=== PATIENT | female | born 1950 | race Caucasian/White ===

== ENCOUNTER 2019-01-06 20:21 | Emergency (ER) | payer OTHER, SELFPAY ==
[2019-01-06] VITALS (7 sets, daily range): BP systolic 136–141; BP diastolic 76–91; PULSE 89–117; RESP 16; TEMP 36.8–36.9; O2SAT 96–98; BMI 32.9
--- NOTE | 2019-01-06 20:58 | CT_ITS ---
STUDY: CT ABDOMEN AND PELVIS WITH CONTRAST REASON FOR EXAM: Female, 68 years old. Lower abdominal pain. RADIATION DOSAGE (If Supplied By Facility): CTDIvol = ( 16.05 ) mGy, DLP = ( 1113.95 ) mGycm TECHNIQUE: Transaxial images were obtained from the dome of the diaphragm to the symphysis pubis without oral contrast. 100ML IV Isovue 300 was administered. Sagittal and coronal images were reconstructed. Individualized dose optimization techniques were used for this CT. COMPARISON: None. FINDINGS: Lung bases are clear. Visualized heart is normal. Small hiatal hernia. 4.3 x 3.2 cm low-attenuation lesion in the posterior segment of the liver demonstrates peripheral puddling consistent with hemangioma. A 1.7 cm posterior segment hemangioma is noted medial to the first. There is a 2.7 x 2.2 x 2.7 cm low-attenuation lesion in the lateral segment of the liver. CT density measures 38 Hounsfield units. This is not consistent with a simple cyst, and is not adequately characterized on the current study. The gallbladder is unremarkable. The spleen and pancreas are unremarkable. The adrenal glands are normal. The kidneys are unremarkable. No stones or hydronephrosis. The aorta is normal in caliber. There is no free fluid, free air, or organized collection. Thick-walled sigmoid colon with diverticulosis and pericolonic stranding, consistent with acute diverticulitis. No free fluid, free air, or organized collection. No bowel obstruction. Moderate stool burden. Normal appendix. Urinary bladder is unremarkable. Multiple calcified uterine fibroids. Normal abdominal wall. Mild degenerative changes of the lumbar spine. CT/Abdomen/Pelvis W IV Cont ONLY IMPRESSION: 1. Acute uncomplicated diverticulitis. 2. Hepatic hemangiomas. 3. Lateral segment hepatic lesion is not characterized on the current study. If there is a history of primary malignancy or abnormal LFTs, further evaluation is warranted. 4. Small hiatal hernia. 5. Uterine fibroids. Electronically Signed: She Baez MD at 22:29 EDT Tel , Service support ,
[2019-01-06] MEDS: Morphine 4 MG/ML Syringe IV (21:18)
[2019-01-06] MEDS: 0.9% Normal Saline 1,000 ML 1000 ML IV (21:20)
--- NOTE | 2019-01-06 21:29 | ED.VIS.GEN ---
History of Present Illness Chief Complaint: Abd Pain Informant: Patient Onset: Days - 5 Context: Gradual Onset Timing: Waxes and wanes Current Severity: Moderate Maximum Severity: Severe Narrative: 68-year-old female with history of diverticulitis and hypertension presenting with lower abdominal pain. Patient states her symptoms started about 5 days ago. She describes it as cramping in nature. It is in her lower abdomen more so on the left side. The pain does not radiate. Patient states that this feels like her prior episode of diverticulitis back in 2013. Patient denies any associated nausea or vomiting. She states she has had normal bowel movements. She denies any fever. She denies any chest pain, shortness breath or difficulty breathing. She denies any urinary symptoms. She took [id number] medication for pain at home which did not help. Past Medical History - Allergies and Home Meds Allergies/Adverse Reactions: Allergies Sulfa (Sulfonamide Antibiotics) Adverse Reaction (Verified 01/06/19 20:24) Nausea Primary Care Physician: Gregory Allen MD [Primary Care Provider] - Past Medical History: - - Diverticulitis, hypertension Surgical History: appendectomy, - - Oophorectomy Smoking Status: Former smoker Review of Systems All systems negative except as indicated General: Reports: Malaise. Denies: Fever Gastrointestinal: Reports: Abdominal pain. Denies: Nausea, Vomiting, Diarrhea Physical Exam Vital Signs/Narrative: Vital Signs Temp Pulse Resp BP Pulse Ox 01/06/19 20:30 98.5 F 01/06/19 20:22 98.5 F 117 H 16 141/91 H 96 Inital Vital Signs reviewed: Yes General: Well nourished, Well developed, - - Comfortable secondary to pain Head: Normocephalic, Atraumatic Eyes: Perrl, EOMI ENT: Moist mucous membranes, No rhinorrhea Neck: Supple, Nontender Cardiovascular: Regular rate, Regular rhythm, No murmurs Respiratory: No distress, CTA bilaterally, Chest nontender Abdomen: Soft, Nondistended, Normal bowel sounds, Tender. Negative for: Guarding - Lower abdomen, left lower quadrant, Rebound tenderness Back: Nontender, Normal Inspection. Negative for: CVA tenderness Extremities: Nontender, No edema Skin: Normal color, No rash Neurological: Alert, Oriented x3, Cranial nerves II-XII grossly intact, Normal Strength, Normal Sensation Psychological: Normal affect, Normal Mood Diagnostic/Tx/Re-eval Laboratory Results - last 24 hr 01/06/19 01/06/19 01/06/19 21:24 21:24 22:05 WBC 9.0 RBC 4.45 Hgb 13.2 Hct 39.5 MCV 88.8 MCH 29.7 MCHC 33.4 RDW Std Deviation 40.1 RDW Coeff of Rosa 12.4 Plt Count 220 MPV 10.4 Immature Gran % (Auto) 0.300 Neut % (Auto) 74.5 H Lymph % (Auto) 14.3 L [place] % (Auto) 9.0 Eos % (Auto) 1.7 Baso % (Auto) 0.2 Absolute Neuts (auto) 6.7 Absolute Lymphs (auto) 1.29 Nucleated RBC % 0 Sodium 139 Potassium 3.3 L Chloride 103 Carbon Dioxide 34.0 H Anion Gap 2 L BUN 17 Creatinine 1.05 H Estim Creat Clear Calc 49.34 Est GFR (MDRD) Af Amer 67 Est GFR (MDRD) Non-Af 56 L BUN/Creatinine Ratio 16.2 Glucose 77 Calcium 9.2 Total Bilirubin 0.40 AST 17 ALT 34 Alkaline Phosphatase 98 Total Protein 7.4 Albumin 3.6 Globulin 3.8 Albumin/Globulin Ratio 0.9 Urine Color Yellow Urine Clarity Sl. Cloudy Urine pH 6.5 Ur Specific [place] 1.015 Urine Protein 15 H Urine Glucose (UA) 100 H Urine Ketones Negative Urine Occult Blood Negative Urine Nitrite Negative Urine Bilirubin Negative Urine Urobilinogen Normal Ur Leukocyte Esterase 100 H Urine RBC 0 SEEN Urine WBC 5-10 SEEN Ur Squamous Epith Cells 0-5 SEEN Urine Bacteria 0 SEEN Urine Mucus 0 SEEN Diagnostic Data Abdomen/Pelvis CT 01/06/19 20:58 IMPRESSION: 1. Acute uncomplicated diverticulitis. 2. Hepatic hemangiomas. 3. Lateral segment hepatic lesion is not characterized on the current study. If there is a history of primary malignancy or abnormal LFTs, further evaluation is warranted. 4. Small hiatal hernia. 5. Uterine fibroids. Electronically Signed: She Baez MD at 22:29 EDT Tel , Service support , - Medical Decision Making Is evaluated for 5 days of worsening lower abdominal pain. Physical exam and history is consistent with diverticulitis. Patient is well-appearing. She is tachycardic but other vital signs are normal. Patient is given IV fluids as well as pain medication. Lab work is relatively unremarkable. She does not have any significant leukocytosis. CT the abdomen does show uncomplicated diverticulitis. Patient elects to be treated outpatient. She will be discharged home with a course of antibiotics, pain medication and nausea medication. She is encouraged to follow-up with her primary care physician. Patient is counseled on the risk of outpatient failure and need to return the emergency room. She verbalizes agreement with this. Patient discharged home in improved and stable condition. ED Disposition - Plan for ED Patient: Disposition: Home or Assisted Living Diagnosis: Diverticulitis Instructions: Diverticulitis Prescriptions: Amoxicillin/Potassium Clav [Augmentin 875-125 Tablet] 1 ea PO BID #14 tab Prescription Printed Hydrocodone Bitart/Apap 5-325 [[place] 5MG-325MG] 1 tablet PO TID PRN PRN 3 Days #10 tablet PRN Reason: Pain Ondansetron [Zofran Odt] 4 mg PO Q8H PRN PRN #10 tab PRN Reason: Nausea Prescription Printed Referrals: Gregory Allen MD [Primary Care Provider] - Additional Instructions: Drink plenty of fluids. Return to emergency room if you have worsening symptoms. You can also take ibuprofen as needed for your pain.
[2019-01-06 21:30] LABS: Absolute Lymphocyte Count 1.29 X10^3/uL (0.83-4.51); Absolute Neutrophil Count 6.7 X10^3/uL (2.0-7.7); Basophil# 0.02 X10^3/uL; Basophil% 0.2 % (0-1); Eosinophil# 0.15 X10^3/uL; Eosinophils% 1.7 % (0-5); Hematocrit 39.5 % (37-47); Hemoglobin 13.2 g/dL (12.0-15.0); Lymphocyte # 1.29 X10^3/ul (4.0); Lymphocyte % 14.3 % (19-41); Mean Corp Hgb Conc 33.4 g/dL (32-36); Mean Corpuscular Hgb 29.7 pg (27.0-32.0); Mean Corpuscular Volume 88.8 fL (81-99); Mean Platelet Vol. 10.4 fl (6.2-12.0); Monocyte# 0.81 X10^3/uL; NRBC Flagged by Analyzer 0 % (0-5); Neutrophil # 6.69 X10^3/uL (2.7-7.7); Neutrophil % 74.5 % (47-70); Platelet Count 220 K/mm3 (150-450); RBC Distribution Width CV 12.4 % (11.6-14.6); RBC Distribution Width SD 40.1 fl (35.1-43.9); Red Blood Count 4.45 M/mm3 (4.2-5.4)
[2019-01-06 21:48] LABS: ALB/GLOB Ratio 0.9 RATIO (0.9-2.4); AST(SGOT) 17 U/L (15-37); Alanine Aminotransfer ALT/SGPT 34 U/L (13-56); Albumin, Serum 3.6 g/dL (3.2-5.0); Alkaline Phosphatase 98 U/L (45-117); Anion Gap 2 (5-15); BUN 17 mg/dL (7-18); BUN/Creat Ratio 16.2 RATIO (10-20); Calcium,Total 9.2 mg/dL (8.5-10.1); Chloride 103 mmol/L (98-107); Creatinine, Serum 1.05 mg/dL (0.55-1.02); EST Glomerular Filtration Rate 56 mL/min (>60); Est Glom Filt Rate - Afr Amer 67 mL/min (>60); Estimated Creatinine Clearance 49.34 ml/min; Globulin 3.8 g/dL (2.2-4.2); Glucose 77 mg/dL (74-106); Potassium 3.3 mmol/L (3.5-5.1); Protein, Total 7.4 g/dL (6.4-8.2); Sodium Level 139 mmol/L (136-145)
[2019-01-06 22:13] LABS: Bacteria 0 SEEN /hpf (None Seen); Mucous, Urine 0 SEEN /hpf (<or=2+); Red Blood Cells-Urine 0 SEEN /hpf (0-5)
[2019-01-06 22:17] LABS: Color, Urine Yellow (Yellow); Glucose, Dipstick 100 mg/dl (Normal); Ketone-Dipstick Negative (Negative); Leukocyte Esterase-Dipstick 100 /ul (Negative); Nitrite-Dipstick Negative (Negative); Occult Blood-Urine Negative /ul (Negative); Protein-Dipstick 15 mg/dl (Negative); Specific Gravity, Urine 1.015 (1.002-1.030); Urine Bilirubin Dipstick Negative (Negative); Urine Clarity Sl. Cloudy (Clear); Urine Urobilinogen Normal (Normal); Urine pH 6.5 (5.0 - 8.0)
[2019-01-06 22:23] LABS: Squamous Epithelial Cells - UA 0-5 SEEN /hpf (5-10); White Blood Cells 5-10 SEEN /hpf (0-5)
[2019-01-06] MEDS: Amox/Clavulanate 875 MG Tablet PO (22:50)
== END 2019-01-06 23:22 | disposition home or self-care (01) ==
PROVIDERS: Emergency Provider Emergency Medicine; Family Provider Family Medicine; PCP Family Medicine
DX: K57.92 Diverticulitis of intestine, part unspecified, without perforation or abscess without bleeding (principal); I10 Essential (primary) hypertension; Z87.891 Personal history of nicotine dependence
CPT/HCPCS: 74177; 80053; 81001; 85025; 96361; 96374; 99283; J7030; Q9967; A4216

== ENCOUNTER → 2019-05-18 14:34 | Outpatient (CLI) | payer OTHER, SELFPAY ==
[2019-05-04 13:41] VITALS: BMI 32.9
--- NOTE | 2019-05-18 14:36 | BI_ITS ---
MAMMOGRAPHY - UNILATERAL DIAGNOSTIC: RIGHT BREAST REASON FOR EXAM: Female, 68 years old. Right breast nodules. PERTINENT HISTORY: Personal history of breast cancer. TECHNIQUE: 90 degree lateral and craniocaudad views of the right breast were obtained. CAD: Full Field Digital Mammography with Computer Added Detection was performed. COMPARISON: Comparison is made with prior oxygen examination dated February 13, 2019. FINDINGS: Breast Composition: There are scattered areas of fibroglandular density. There is a 6.7 mm well-defined nodule in the mid central slightly lateral aspect of the breast. There is also evidence of a 4.8 mm nodule in the lateral aspect of the breast not well seen on the 90 degree lateral. Correlation with ultrasound is recommended. No other significant abnormalities are identified. BI/DIAG MAMM W/CAD, UNILAT IMPRESSION: 2 nodular densities seen in the right breast as described. Correlation with ultrasound is recommended. ASSESSMENT CATEGORY: BIRADS Category 0: Incomplete. Need additional imaging evaluation. A letter regarding these results will be sent to the patient by the facility within 30 days. Approximately 10% of breast cancers are not detected by mammography. A normal mammogram should not delay biopsy of a clinically suspicious abnormality. Electronically Signed: Jesus Rodriguez, at 8:05 EST , Service support ,
--- NOTE | 2019-05-18 15:27 | US_ITS ---
STUDY: ULTRASOUND BREAST - RIGHT REASON FOR EXAM: Female, 68 years old. Abnormal screening mammogram. TECHNIQUE: Axial and longitudinal images of the RIGHT breast were performed with a high resolution ultrasound transducer. # OF IMAGES: 57 COMPARISON: Comparison is made with prior mammogram done earlier in the day. FINDINGS: RIGHT Breast: Multiple small cysts are seen. The largest cyst measures 8 mm x 6 mm x 5 mm. This is at the 9:00 position the breast at 4 cm. US/Breast Complete Unilateral IMPRESSION: Multiple small cysts. ASSESSMENT CATEGORY: BIRADS Category 2: Benign. A letter regarding these results will be sent to the patient by the facility within 30 days. Electronically Signed: Jesus Rodriguez, at 8:10 EST , Service support ,
== END ==
PROVIDERS: Family Provider Family Medicine; PCP Family Medicine; Referring Provider Surgery; Visit Provider Surgery
DX: R92.2 Inconclusive mammogram (principal); D05.12 Intraductal carcinoma in situ of left breast
CPT/HCPCS: 76641; 77065

== ENCOUNTER 2019-05-25 05:45 | Day surgery (SDC) | payer OTHER, SELFPAY ==
--- NOTE | 2019-05-04 01:57 | HP_ITS ---
Intake Vital Signs 05/04/19 BMI 32.9 05/04/19 Height 5 ft 6 in 05/04/19 Weight: 200 lb 05/04/19 BMI 32.3 05/04/19 BP 138/83 H 05/04/19 Blood Pressure Location Rt brachial 05/04/19 Position Sitting 05/04/19 Respiration 16 05/04/19 Pulse 86 05/04/19 Pulse Source Monitor 05/04/19 Temp 98.5 F 05/04/19 Temp Source Oral 05/04/19 Pulse Oximetry (%) 97 05/04/19 Oxygen Delivery Method room air Intake Visit Reasons: 2nd opinion breast cancer Haircutter Required: No Is patient in pain?: No Allergies Sulfa (Sulfonamide Antibiotics) Adverse Reaction (Verified 05/04/19 13:38) Nausea Medications Benazepril/Hydrochlorothiazide [Benazepril-Hctz 20-25 mg Tab] 1 ea PO DAILY 01/06/19 [History Confirmed 05/04/19] albuterol sulfate 90 mcg/actuation aerosol inhaler 2 puff INHALATION Q4H PRN g 05/04/19 [History Confirmed 05/04/19] bupropion HCl 300 mg 24 hr tablet, extended release 300 mg PO QAM tab 05/04/19 [History Confirmed 05/04/19] clobetasol 0.05 % topical cream TOPICAL 05/04/19 [History Confirmed 05/04/19] PFSH Medical History (Updated 05/04/19 @ 13:45 by Danelle Gimenez) 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) Hypertension (Chronic) Surgical History S/P breast biopsy, right (Acute) Hx of colonoscopy (Acute) Hx of dilation and curettage (Acute) Hx of nasal septoplasty (Acute) Hx of left breast biopsy (Acute) History of lumpectomy of left breast (Acute) History of left oophorectomy (Acute) Hx of hemorrhoidectomy (Acute) Hx of tonsillectomy (Acute) Family History Mother Rheumatoid arthritis High cholesterol Sister Diabetes Father Emphysema lung Social History (Updated 05/04/19 @ 13:57 by Ayan Barron MD) Smoking Status: Former smoker alcohol intake: current alcohol intake frequency: holidays/special occasions only substance use type: does not use caffeine: Yes what type of physical activity do you participate in: none frequency: does not exercise HPI HPI HPI: ERNESTO VALDEZ, is a 68 F who presents to the office today for HPI HPI Surgical H&P: Yes HPI: ERNESTO VALDEZ, is a 68 F who presents to the office today for surgical consultation regarding DCIS upper inner left breast. Patient is referred by Aye Gonzalez and a written copy of my surgical consult and recommendations will be returned to her. 68-year-old female. G3. Menarche age age 15. She had a previous wire localized lumpectomy upper inner left breast approximately 2009. By report biopsy was suspicious but lumpectomy suggested benign findings. The patient was on estrogen replacement therapy for 10 years status post hysterectomy.. She has had no personal history of breast cancer. No family history of breast cancer. February 13, 2019 the patient had screening mammography suggesting a benign density on the right and a 1.8 cm area of microcalcifications upper inner left breast 11 o'clock position. She then had diagnostic left mammogram suggesting grouped heterogenous calcifications left breast 11 o'clock position posterior depth suspicious with stereotactic biopsy recommended. And so at [facility] on April 09, 2019 she had a stereotactic needle core left breast biopsy. Final pathology shows ductal carcinoma in situ nuclear grade 2 some areas of comedonecrosis microcalcifications identified. Estrogen receptors positive at 90%. Progesterone receptors positive at 90%. ROS General General: Yes breast cancer; no weight change, appetite, fatigue, colon cancer or weakness HEENT HEENT: No difficulty swallowing, eye injury, eye surgery, swollen glands or hoarseness Endo Endocrine: No thyroid disease, diabetes mellitus, thyroid cancer, Hair loss, heat intolerance or cold intolerance Skin Skin: No rash or changing moles Breast Breast: Yes right breast lump and abnormal mammogram; no left breast lump, nipple discharge, breast pain, abnormal US or breast enlargement Musc Musculoskeletal: No back problems, arthritis, rheumatoid arthritis, gout or joint pain Cardio Cardiovascular: Yes high blood pressure; no murmur, pacemaker, heart disease, atrial fibrillation, heart attack, heart stent, palpitations, shortness of breat with exertion or chest pain Psych Psychiatric: No depression, anxiety or hearing voices Resp Respiratory: No shortness of breath, No sleep apnea, No cough, No COPD, No asthma, No emphysema, No wheezing Gastro Gastrointestinal: No abdominal pain, No nausea or vomiting, No diarrhea, No constipation, No blood in stool, No acid reflux, No hemorrhoids, No ulcers, No gallbladder problem, No black,tarry stools Tee Hematologic: No blood thinners, No blood disorders, No bleeding, No anemia, No blood clots Neuro Neurologic: No system reviewed and no additional complaints, except as docu, No as per HPI, No abnormal walking, No abnormal hearing, No abnormal movements, No abnormal speech, No behavioral changes, No burning sensations, No confusion, No seizure-like activity, No unsteadiness, No dizziness, No localized weakness, No frequent falls, No headache(s), No lack of coordination, No loss of vision, No memory loss, No numbness, No other visual disturbances, No radiating pain, No restless legs, No sensory deficit, No fainting, No tingling, No tremor(s), No weakness, No other Exam Const General: cooperative, healthy appearing, comfortable, no acute distress Nutritional Appearance: average body habitus Orientation: alert, awake [facility] Head: normal to inspection Chest Breast Palpation: No nipple discharge Other: Right breast: No focal mass. No nipple discharge. No axillary or clavicular adenopathy Left breast: Well-healed curvilinear incision upper inner left breast. No focal mass. No nipple discharge. No axillary clavicular adenopathy Resp Effort & Inspection: normal respiratory effort Auscultation: clear to auscultation bilaterally Cardio Rate: regular rate Rhythm: regular rhythm Heart Sounds: no murmurs GI Palpation: soft, no hepatosplenomegaly Extrem General: no calf tenderness bilaterally Psych Affect: normal affect Assessment & Plan Problems 1. Ductal carcinoma in situ (DCIS) of left breast D05.12 Plan DCIS upper inner left breast. I have reviewed the mammograms. No focal density identified. Pathology consistent with in situ disease. At this point I do not believe that risk of sentinel lymph node biopsy is appropriate. I have offered her a stereotactic wire localization upper inner left breast with wire localized lumpectomy. The patient and her are aware of the technique, benefit, risk and alternatives. They are aware that final pathology may suggest invasive ductal carcinoma. They are aware of the potential for positive margins. Regarding the initial mammogram interpretation of benign density right breast we will have the films reviewed locally to see if diagnostic right mammogram or ultrasound would be appropriate. She is aware that I will recommend medical oncology and radial oncology review. We will establish postoperative appointments as indicated. She has had an opportunity to ask and have questions answered. We will schedule and proceed as noted. Patient had a colonoscopy just over a year ago she states that that was clear with recommendations for follow-up screening colonoscopy at 10 years CC: Dr. Aye Gonzalez and DO Ayan Becerra M.D., F.A.C.S. Coding Level of Care Code 63104 Diagnoses Ductal carcinoma in situ (DCIS) of left breast D05.12 05/04/19 1357 <Electronically signed by Ayan larsen MD> Date _ Ayan Barron MD I have re-examined the patient. There are no clinical changes since date of exam.
[2019-05-04 13:41] VITALS: BMI 32.9
--- NOTE | 2019-05-18 15:58 | EKG12_ITS ---
Test Reason : PRE OP Blood Pressure : / mmHG Vent. Rate : 081 BPM Atrial Rate : 081 BPM P-R Int : 166 ms QRS Dur : 076 ms QT Int : 364 ms P-R-T Axes : 044 037 055 degrees QTc Int : 422 ms Normal sinus rhythm Cannot exclude precordial lead ,misplacement ( V1-V2) Recommend Repeat ECG Abnormal ECG Confirmed by LATRICIA RAMOS, FLORA ([id number]), dictionary editor PERCY GOMEZ ([id number]) on 05/20/2019 9:50:11 AM Referred By: Ayan Barron Confirmed By:FLORA ROME MD
[2019-05-18 17:05] LABS: Hematocrit 44.9 % (37-47); Hemoglobin 14.8 g/dL (12.0-15.0); Mean Platelet Vol. 10.9 fl (6.2-12.0); Platelet Count 286 K/mm3 (150-450); RBC Distribution Width SD 38.9 fl (35.1-43.9); White Blood Count 6.6 K/mm3 (4.4-11.0)
[2019-05-18 17:32] LABS: Anion Gap 5 (5-15); BUN 13 mg/dL (7-18); BUN/Creat Ratio 12.4 RATIO (10-20); Calcium,Total 9.4 mg/dL (8.5-10.1); Chloride 103 mmol/L (98-107); Creatinine, Serum 1.05 mg/dL (0.55-1.02); EST Glomerular Filtration Rate 56 mL/min (>60); Est Glom Filt Rate - Afr Amer 67 mL/min (>60); Glucose 72 mg/dL (74-106); Potassium 3.4 mmol/L (3.5-5.1); Sodium Level 139 mmol/L (136-145)
[2019-05-25] VITALS (8 sets, daily range): BP systolic 136–154; BP diastolic 77–100; PULSE 60–87; RESP 16; TEMP 36.2–37.1; O2SAT 96–99; BMI 32.1
--- NOTE | 2019-05-25 | BRBX_PTH ---
PATIENT: ERNESTO VALDEZ LOC: [facility] [place] U#:[id number] AGE/SX: 68/F ROOM: RE05/25/[address]: Dr. Ayan Barron MD : 1950 BED: DIS: 05/25/2019 SPEC #: [id number] RECD: 05/25/19 08:08 STATUS: CHELSI BURGERMuriel #: [id number] SOPHIA: 05/25/19 00:[address]: Ayan Barron DEPT: SURGICAL PATHOLOGY RECD BY: Chhaya Miner ENTERED: 05/25/19 08:58 SP TYPE: BREAST BX OTHR DR: MD Dr. Graciela Rosales DO Tissues: Left breast, NOS Procedures: Surgery Specimen Level V HEADER OPERATION: Needle localized left breast lumpectomy PRE-OP DIAGNOSIS: DCIS of left breast D05.12 TISSUE SUBMITTED: Left breast lumpectomy tissue MICROSCOPIC DIAGNOSIS Left breast, lumpectomy with needle localization: Ductal carcinoma in situ. See cancer summary below. SJ:siria 05/28/19 DUCTAL CARCINOMA IN SITU SUMMARY: Procedure - lumpectomy with needle localization Specimen laterality - left breast Tumor site - upper inner, 11 o'clock position, as per EMR. Size (extent of DCIS): Estimated size (extent) - 1.2 x 0.5 cm (measured microscopically) Number of blocks with DCIS - 4 Number of blocks examined - 12 Histologic type - ductal carcinoma in situ Architectural pattern - cribriform Nuclear grade - grade 2 (intermediate) Necrosis - present, central (expansive comedo necrosis) Margin - uninvolved by DCIS The tumor is 0.6 cm away from the closest superior margin. Regional lymph nodes - no lymph nodes submitted or found. Distant metastasis - not applicable Additional Pathologic Findings: Changes consistent with previous biopsy site. Ancillary Studies performed at [facility]: ER - positive (90%) AL - positive (90%) Microcalcifications - present in DCIS and non-neoplastic tissue. Clinical history - DCIS of left breast. Please make reference to previous specimen ([id number], [facility]) left breast, stereotactic needle core biopsy at 11 o'clock with diagnosis of ductal carcinoma in situ, nuclear grade 2, with areas of comedo necrosis and microcalcifications are identified. Radiologic findings - Heterogenous calcification left breast at 11 o'clock positon, posterior depth as per patient's EMR. Pathologic Staging: pTis(DCIS) pNx Mx The above summary is in compliance with [employer] (CAP) Cancer Protocols Checklist and [place] Joint Committee on Cancer (AJCC), Staging Manual, 8th Ed. COMMENT Case has been reviewed in consultation with Dr. Lobo who concurs with the above diagnosis. IDC:AM MICROSCOPIC DESCRIPTION Slides are reviewed. GROSS DESCRIPTION Received fresh for intraoperative consultation labeled with the patient's name is a specimen designated left breast lumpectomy tissue. The specimen consists of a piece of fibroadipose tissue with needle localization measuring 6 x 6 x 4 cm. The specimen is oriented as follows: wire - inferior, long suture - lateral, short suture - superior. The specimen is inked as follows: anterior - yellow, posterior - black, superior - blue, inferior - green, medial - red and lateral - orange. Serial sections reveal yellow adipose cut surfaces with a scant fibrous area. No mass lesion is identified. A metallic clip is noted which is 2 cm from inferior and anterior margin of the specimen. This information is conveyed to the surgeon intraoperatively. Certified Public Accountant sections are submitted in ten cassettes as follows: 1 & 2, 11 & 12 -- perpendicular margins ( margins are re-embedded from 1&2 into four cassettes, 1, 2 11 &12) 3-6 - area of the clip and surrounding area, 710 - Certified Public Accountant sections away from the clip. Sections are submitted after additional fixation. / PHAM:siria 05/26/19 TC:0 CPT: 73987, [id number]
[2019-05-25] MEDS: Lactated Ringers 1,000 ML 100 ML IV (06:28)
--- NOTE | 2019-05-25 06:35 | BI_ITS ---
SURGICAL BREAST SPECIMEN RADIOGRAPH CLINICAL: Document presence of tissue clip marker in biopsy specimen. FINDINGS: Specimen shows presence of tissue clip marker. Electronically Signed: Jesus Rodriguez, at 9:56 EST , Service support , BI/Breast Biopsy Specimen
--- NOTE | 2019-05-25 07:07 | PCM.OPRPT ---
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 Wire localized excisional lumpectomy upper mid left breast Description of Surgical Findings:: Timeout and informed consent was obtained. 68-year-old female was taken to the stereotactic unit. She was placed prone on the table. The left breast was placed in the cc position. The previously placed marking clip was identified. Stereotactic images were obtained. Digital information was obtained on a single target site. The breast was prepped with Betadine. 1% lidocaine was used as a local anesthetic. The needle was advanced to the location of +15 mm. The wire was displaced. On fast view demonstrated good positioning. Tape and sterile dressings applied. Medial lateral oblique view was obtained. She was subsequently taken to the operating for planned definitive resection. Patient was taken the operating room. General general anesthesia. Left arm was carefully wrapped with soft rolls and placed at right angles of the table. Left wrist was sterilely prepped and draped. A curvilinear incision was made in the upper mid inner left breast approximate 11 o'clock position. Sharp dissection carried down through the subcutaneous tissue. The wire was identified and carefully preserved. Electrocautery was used to perform circumferential dissection and the lesion was completely excised. Hemostasis obtained with combination of electrocautery and 3-0 Vicryl ligature. Specimen mammograms demonstrated that the marking clip was centralized within the specimen. The magaly-incisional areas anesthetized with 30 cc of 0.5% Marcaine. 4 small hemoclips were placed at the edges of the previous lumpectomy excision. The subdermal edges approximate interrupted 3-0 Vicryl and then a running septic or 4-0 Monocryl. Steri-Strips Telfa OpSite bulky dry dressings applied. Sponge and instrument and needle counts were reported to surgically correct. Blood loss minimal. The patient tolerated the procedure well was taken to recovery room in satisfactory addition without apparent complication. Specimen breast mass. Drains none. Blood loss minimal. Ayan Barron M.D., F.A.C.S. Type of Anesthesia:: General Anesthesiologist: Hardy Wheeler
--- NOTE | 2019-05-25 07:09 | DCINST_ITS ---
Discharge Diet: No Restrictions Discharge Activity: May Not Drive - for 2-3 days or while taking narcotic pain meds. May shower in (days): 1 Lifting Restrictions: 10 pounds for 1 week. Call your doctor if your incision/area has: Continuous Slow Oozing, Sudden In creased Bleeding Call your doctor if you observe: Fever of 101 or Higher Suture Line Care: Avoid Pulling/Pushing, Avoid Pinching/Bending Remove Dressing in (days):: 1 Additional Dressing/Incision Instructions:: Remove bulky dressing tomorrow. May leave any opsite dressing for 3-4 days. You may then leave the Steri-Strips on for 1 week Allergies/Adverse Reactions: Allergies Sulfa (Sulfonamide Antibiotics) Adverse Reaction (Verified 05/25/19 06:16) Nausea Medications to take at Discharge Benazepril/Hydrochlorothiazide [Benazepril-Hctz 20-25 mg Tab] 1 ea PO DAILY 01/06/19 bupropion HCl 300 mg 24 hr tablet, extended release 300 mg PO QAM tab 05/04/19 clobetasol 0.05 % topical cream 1 dose TOPICAL PRN PRN 05/04/19 Levothyroxine [Synthroid] 25 mcg PO DAILY 05/18/19 Primary Care Physician: Graciela Oconnor DO [Primary Care Provider] - Please Follow Up With: Ayan Barron MD When: [phone] Appt in approx 7-10 days please
[2019-05-25] MEDS: Bupivacaine Mpf 0.5% 30 ML VIAL (08:09)
== END 2019-05-25 10:36 | disposition home or self-care (01) ==
LOC: SDC 05:46 → AC 05:47
PROVIDERS: Family Provider Family Medicine; PCP Family Medicine; Referring Provider Surgery; Visit Provider Surgery
PROC: (CPT 19301; principal; 2019-05-25 07:15)
DX: D05.12 Intraductal carcinoma in situ of left breast (principal); I10 Essential (primary) hypertension; E03.9 Hypothyroidism, unspecified; F32.9 Major depressive disorder, single episode, unspecified; Z79.899 Other long term (current) drug therapy; Z87.891 Personal history of nicotine dependence
CPT/HCPCS: 19301; 19281; 36415; 76098; 80048; 85027; 88305; 88307; 93005; J7120

== ENCOUNTER → 2020-02-25 | Outpatient (CLI) | payer OTHER, SELFPAY ==
[2019-06-15 14:33] VITALS: BMI 32.3
[2019-09-01 15:43] VITALS: BMI 33.2
--- NOTE | 2020-02-25 07:49 | BI_ITS ---
MAMMOGRAPHY - BILATERAL SCREENING REASON FOR EXAM: Female, 69 years old. Routine annual screening examination. PERTINENT HISTORY: Personal history of breast cancer. Prior left lumpectomy with radiation treatment and remote excisional left breast biopsy. TECHNIQUE: Digital bilateral breast donna (3D mammographic acquisition) in the CC and MLO projections. 2-D mediolateral oblique (MLO) and craniocaudad (CC) views of both breasts were obtained. CAD: Full Field Digital Mammography with Computer Added Detection was performed. COMPARISON: Comparison is made with prior examination 02/13/2019. FINDINGS: Breast Composition: There are scattered areas of fibroglandular density. There are no dominant masses or suspicious calcifications. Since prior study, surgical clips are seen in the deep upper slightly medial portion of the left breast in keeping with history of prior lumpectomy. The previously seen calcifications have been resected. There now is evidence of a 1.2 cm x 0.7 cm slightly irregular nodule in the deep inferior medial portion of the right breast. Correlation with ultrasound is recommended. No other significant abnormalities are identified. BI/SCREEN MAMM (CAD) W/DONNA BILAT IMPRESSION: Status post lumpectomy in the deep upper medial portion of the left breast. 1.2 cm x 0.7 cm nodule in the deep inferior medial portion of the right breast as described. Correlation with ultrasound is recommended. ASSESSMENT CATEGORY: BIRADS Category 0: Incomplete. Need additional imaging evaluation. A letter regarding these results will be sent to the patient by the facility within 30 days. Approximately 10% of breast cancers are not detected by mammography. A normal mammogram should not delay biopsy of a clinically suspicious abnormality. [id number] Electronically Signed: Jesus Rodriguez, at 10:03 EDT , Service support ,
== END | disposition home or self-care (01) ==
LOC: OPBI 07:49
PROVIDERS: PCP Family Medicine; Referring Provider Surgery; Visit Provider Surgery
DX: Z12.31 Encounter for screening mammogram for malignant neoplasm of breast (principal)
CPT/HCPCS: 77063; 77067

== ENCOUNTER → 2020-02-26 11:07 | Outpatient (CLI) | payer OTHER, SELFPAY ==
[2019-06-15 14:33] VITALS: BMI 32.3
[2019-09-01 15:43] VITALS: BMI 33.2
--- NOTE | 2020-02-26 11:09 | US_ITS ---
STUDY: ULTRASOUND BREAST - RIGHT REASON FOR EXAM: Female, 69 years old. Abnormal screening mammogram. TECHNIQUE: Axial and longitudinal images of the RIGHT breast were performed with a high resolution ultrasound transducer. # OF IMAGES: 44 COMPARISON: Comparison is made with prior mammogram dated 02/25/2020. FINDINGS: RIGHT Breast: The inferior inner quadrant of the right breast was examined by ultrasound. There is a homogeneous fibroglandular tissue. No solid or cystic mass lesion is seen. The patient will be recalled for additional views. US/Breast Limited Unilateral IMPRESSION: No sonographic abnormality is seen. The patient will be recalled for additional views of the right breast. ASSESSMENT CATEGORY: BIRADS Category 0: Incomplete. Need additional imaging evaluation. A letter regarding these results will be sent to the patient by the facility within 30 days. Electronically Signed: Jesus Rodriguez, at 15:35 EDT , Service support ,
== END ==
PROVIDERS: PCP Family Medicine; Referring Provider Surgery; Visit Provider Surgery
DX: R92.2 Inconclusive mammogram (principal)
CPT/HCPCS: 76642

== ENCOUNTER → 2020-03-07 09:33 | Outpatient (CLI) | payer OTHER, SELFPAY ==
[2019-06-15 14:33] VITALS: BMI 32.3
[2019-09-01 15:43] VITALS: BMI 33.2
--- NOTE | 2020-03-07 09:34 | BI_ITS ---
MAMMOGRAPHY - UNILATERAL DIAGNOSTIC: RIGHT BREAST REASON FOR EXAM: Female, 69 years old. Abnormal screening mammogram. PERTINENT HISTORY: Non-contributory. TECHNIQUE: Compression magnification oblique (MLO) and craniocaudad (CC) views of the right breast were obtained. CAD: Full Field Digital Mammography with Computer Added Detection was performed. COMPARISON: Comparison is made with prior mammogram dated 02/25/2020 and prior sonogram of the breasts dated 02/26/2020. FINDINGS: Breast Composition: There are scattered areas of fibroglandular density. Persistent nodular density in the deep inferior medial portion of the right breast. A biopsy is recommended for further evaluation. No other significant abnormalities are identified. BI/DIAG MAMM W/CAD, UNILAT IMPRESSION: Persistent nodular density in the inferior medial portion of the right breast as described. A biopsy is recommended for further evaluation. ASSESSMENT CATEGORY: BIRADS Category 4: Suspicious - Biopsy Should Be Considered. A letter regarding these results will be sent to the patient by the facility within 30 days. Approximately 10% of breast cancers are not detected by mammography. A normal mammogram should not delay biopsy of a clinically suspicious abnormality. Electronically Signed: Jesus Rodriguez, at 10:57 EST , Service support ,
== END ==
PROVIDERS: PCP Family Medicine; Referring Provider Surgery; Visit Provider Surgery
DX: R92.8 Other abnormal and inconclusive findings on diagnostic imaging of breast (principal)
CPT/HCPCS: 77065

== ENCOUNTER → 2020-03-15 11:10 | Outpatient (CLI) | payer OTHER, SELFPAY ==
[2019-06-15 14:33] VITALS: BMI 32.3
[2020-03-14 13:51] VITALS: BMI 32.3
--- NOTE | 2020-03-15 11:30 | BRBX_PTH ---
PATIENT: ERNESTO VALDEZ LOC: [facility] U#:[id number] AGE/SX: 74/F ROOM: RE03/15/[address]: Dr. Ayan Barron MD : 1950 BED: DIS: SPEC #: [id number] RECD: 03/15/20 12:41 STATUS: CHELSI REMuriel #: [id number] SOPHIA: 03/15/20 11:[address]: Ayan Barron DEPT: SURGICAL PATHOLOGY RECD BY: Rose Wilks ENTERED: 03/15/20 13:04 SP TYPE: BREAST BX OTHR DR: Dr. Graciela Oconnor, DO Tissues: Breast, NOS Procedures: Surgery Specimen Level IV HEADER OPERATION: Right stereotactic breast biopsy PRE-OP DIAGNOSIS: Right inferior medial breast density TISSUE SUBMITTED: Right breast tissue ISCHEMIC TIME: 1 minute FIXATION TIME: 8 hours MICROSCOPIC DIAGNOSIS Right inferior medial breast density, stereotactic core biopsy: Nonproliferative fibrocystic change with focal microcalcifications. No evidence of malignancy. AM:siria 03/16/20 MICROSCOPIC DESCRIPTION Slides are reviewed. GROSS DESCRIPTION Received is one container labeled with the patient's name and not further designated. The specimen consists of multiple irregular fragments of yuan-yellow soft tissue that in aggregate measure 8.5 x 3 x 0.2 cm. The specimen is totally submitted in three cassettes. / AM:siria 03/15/20 TC:5 CPT: 34900
== END ==
PROVIDERS: PCP Family Medicine; Visit Provider Surgery
DX: N60.11 Diffuse cystic mastopathy of right breast (principal); R92.0 Mammographic microcalcification found on diagnostic imaging of breast; I10 Essential (primary) hypertension; Z79.899 Other long term (current) drug therapy; Z87.891 Personal history of nicotine dependence
CPT/HCPCS: 19081; 88305; J7050

== ENCOUNTER → 2020-12-09 14:09 | Outpatient (CLI) | payer OTHER, SELFPAY ==
[2019-06-15 14:33] VITALS: BMI 32.3
[2020-03-14 13:51] VITALS: BMI 32.3
--- NOTE | 2020-12-09 14:25 | BI_ITS ---
MAMMOGRAPHY - UNILATERAL DIAGNOSTIC: RIGHT BREAST REASON FOR EXAM: Female, 70 years old. Six-month follow-up for stereotactic biopsy of the right breast nodule. PERTINENT HISTORY: Personal history of breast cancer. TECHNIQUE: Digital unilateral breast javy (3D mammographic acquisition) in the CC and MLO projections. 2-D mediolateral oblique (MLO) and craniocaudad (CC) views of both breasts were obtained. CAD: Full Field Digital Mammography with Computer Added Detection was performed. COMPARISON: Comparison is made with prior study dated 02/25/2020. FINDINGS: Breast Composition: There are scattered areas of fibroglandular density. There are no dominant masses or suspicious calcifications. A tissue clip marker is seen within the nodular density in the deep inferior medial portion of the left breast. No other significant abnormalities are identified. BI/DIAG MAMM W/CAD, UNILAT IMPRESSION: Status post right stereotactic breast biopsy. A tissue clip marker is seen within the nodule in the inferior medial portion of the left breast. ASSESSMENT CATEGORY: BIRADS Category 2: Benign. A letter regarding these results will be sent to the patient by the facility within 30 days. Approximately 10% of breast cancers are not detected by mammography. A normal mammogram should not delay biopsy of a clinically suspicious abnormality. Electronically Signed: Jesus Rodriguez MD at 15:39 EDT , Service support ,
== END ==
PROVIDERS: PCP Family Medicine; Referring Provider Surgery; Visit Provider Surgery
DX: N63.25 Unspecified lump in the left breast, overlapping quadrants (principal)
CPT/HCPCS: 77061; 77065; G0279

== ENCOUNTER → 2021-03-02 08:45 | Outpatient (CLI) | payer OTHER, SELFPAY ==
[2019-06-15 14:33] VITALS: BMI 32.3
--- NOTE | 2021-03-02 08:49 | BI_ITS ---
MAMMOGRAPHY - UNILATERAL DIAGNOSTIC: LEFT BREAST REASON FOR EXAM: Female, 70 years old. Post left lumpectomy. PERTINENT HISTORY: Personal history of breast cancer. TECHNIQUE: Digital unilateral breast javy (3D mammographic acquisition) in the CC and MLO projections. 2-D mediolateral oblique (MLO) and craniocaudad (CC) views of both breasts were obtained. CAD: Full Field Digital Mammography with Computer Added Detection was performed. COMPARISON: Comparison is made with prior study dated 02/25/2020. FINDINGS: Breast Composition: There are scattered areas of fibroglandular density. There are no dominant masses or suspicious calcifications. Once again, the patient is status post lumpectomy in the deep upper slightly medial aspect of the left breast. Postsurgical changes are seen. No other significant abnormalities are identified. There has been no significant change since the prior study. BI/DIAG MAMM W/CAD, UNILAT IMPRESSION: Stable unilateral diagnostic mammogram. One year follow-up mammogram recommended. (A) ASSESSMENT CATEGORY: BIRADS Category 2: Benign. A letter regarding these results will be sent to the patient by the facility within 30 days. Approximately 10% of breast cancers are not detected by mammography. A normal mammogram should not delay biopsy of a clinically suspicious abnormality. Electronically Signed: Jesus Rodriguez MD at 9:50 EDT , Service support ,
== END ==
PROVIDERS: PCP Family Medicine; Visit Provider Surgery
DX: Z98.890 Other specified postprocedural states (principal)
CPT/HCPCS: 77061; 77065; G0279

== ENCOUNTER → 2022-03-16 | Outpatient (CLI) | payer OTHER, SELFPAY ==
[2019-06-15 14:33] VITALS: BMI 32.3
--- NOTE | 2022-03-16 07:58 | BI_ITS ---
MAMMOGRAPHY - BILATERAL SCREENING REASON FOR EXAM: Female, 71 years old. Routine annual screening examination. PERTINENT HISTORY: Personal history of breast cancer. Prior left lumpectomy and radiation treatment. Prior left excisional breast biopsy and left stereotactic breast biopsy. TECHNIQUE: Digital bilateral breast donna (3D mammographic acquisition) in the CC and MLO projections. 2-D mediolateral oblique (MLO) and craniocaudad (CC) views of both breasts were obtained. CAD: Full Field Digital Mammography with Computer Added Detection was performed. COMPARISON: Comparison is made with prior study 03/02/2021 FINDINGS: Breast Composition: There are scattered areas of fibroglandular density. There are no dominant masses or suspicious calcifications. The patient is status post lumpectomy in the deep upper central aspect of the left breast with resultant postoperative scarring. A tissue clip marker seen within the tiny nodule in the central deep medial portion of the right breast. No other significant abnormalities are identified. There has been no significant change since the prior study. BI/SCRN MAMM (CAD)W/DONNA BILAT IMPRESSION: Stable bilateral screening mammogram. Yearly follow-up mammogram recommended. (A) ASSESSMENT CATEGORY: BIRADS Category 2: Benign. A letter regarding these results will be sent to the patient by the facility within 30 days. Approximately 10% of breast cancers are not detected by mammography. A normal mammogram should not delay biopsy of a clinically suspicious abnormality. [id number] Electronically Signed: Jesus Rodriguez MD at 8:44 EST ,
== END | disposition home or self-care (01) ==
PROVIDERS: PCP Family Medicine; Visit Provider Physician Assistant
DX: Z12.31 Encounter for screening mammogram for malignant neoplasm of breast (principal)
CPT/HCPCS: 77063; 77067

== ENCOUNTER → 2023-04-18 | Outpatient (CLI) | payer MEDICARE, SELFPAY ==
[2019-06-15 14:33] VITALS: BMI 32.3
--- NOTE | 2023-04-18 10:00 | BI_ITS ---
MAMMOGRAPHY - BILATERAL SCREENING REASON FOR EXAM: Female, 72 years old. Routine annual screening examination. PERTINENT HISTORY: Personal history of breast cancer. History of prior left lumpectomy with radiation therapy. Remote left excisional breast biopsy. Sister with breast cancer. TECHNIQUE: Digital bilateral breast donna (3D mammographic acquisition) in the CC and MLO projections. 2-D mediolateral oblique (MLO) and craniocaudad (CC) views of both breasts were obtained. CAD: Full Field Digital Mammography with Computer Added Detection was performed. COMPARISON: Comparison is made with prior study dated March 16, 2022 and March 02, 2020 FINDINGS: Breast Composition: There are scattered areas of fibroglandular density. There are no dominant masses or suspicious calcifications. Once again, the patient is status post lumpectomy in the deep upper central aspect of the left breast with resultant postoperative scarring. A tissue clip marker is seen within a tiny nodule in the central deep medial portion of the right breast. Stable small benign appearing bilateral axillary lymph nodes. No other significant abnormalities are identified. There has been no significant change since the prior study. BI/SCRN MAMM (CAD)W/DONNA BILAT IMPRESSION: Stable bilateral screening mammogram. Yearly follow-up mammogram recommended. (A) ASSESSMENT CATEGORY: BIRADS Category 2: Benign. A letter regarding these results will be sent to the patient by the facility within 30 days. Approximately 10% of breast cancers are not detected by mammography. A normal mammogram should not delay biopsy of a clinically suspicious abnormality. [id number] Electronically Signed: Jesus Rodriguez MD at 10:53 EST ,
--- NOTE | 2023-04-18 10:04 | BD_ITS ---
STUDY: DUAL ENERGY X-RAY ABSORPTIOMETRY / DXA REASON FOR EXAM: Female, 72 years old. [id number] TECHNIQUE: Bone Mineral Density (BMD) measurements of lumbar spine and bilateral hips were obtained. COMPARISON: None. FINDINGS: Lumbar Spine (L1-L4): g/cm2 (0.828) / T-score (-1.4) / Z-score (0.6) Findings are suggestive of osteopenia with a low fracture risk. Left Femur Total: g/cm2 (0.909) / T-score (-0.3) / Z-score (1.3) Left Femoral Neck: g/cm2 (0.744) / T-score (-0.9) / Z-score (0.9) Right Femur Total: g/cm2 (0.854) / T-score (-0.7) / Z-score (0.8) Right Femoral Neck: g/cm2 (0.698) / T-score (-1.4) / Z-score (0.5) BD/Dexa Bone Density Study IMPRESSION: The patient is considered osteopenic as outlined below according to World Tee Organization (WHO) criteria with a low fracture risk. Reference Information: The T-score is the number of standard deviations above or below the standard which is normal for young adults at their peak bone mineral density. The World Health Organization (WHO) interprets the T-scores as follows: Above -1 Normal bone density Between -1 and -2.5 Osteopenia Equal to / or below -2.5 Osteoporosis As a practical clinical guideline, osteopenia may be graded as follows: Mild -1 through -1.5 Moderate -1.6 through -2.0 Severe -2.1 through -2.4 The Z-score is the number of standard deviations above or below age-matched controls. A Z-score of less than -1.5 would be considered abnormal. References: 1. NIH Osteoporosis and Related Bone Diseases www osteo.org 2. International Society for Clinical Densitometry www iscd.org 3. National Osteoporosis Foundation www nof.org Electronically Signed: Jesus Rodriguez MD at 14:26 EST ,
== END | disposition home or self-care (01) ==
LOC: OPBD 09:58
PROVIDERS: PCP Family Medicine; Referring Provider Family Medicine; Visit Provider Family Medicine
DX: Z12.31 Encounter for screening mammogram for malignant neoplasm of breast (principal); Z85.3 Personal history of malignant neoplasm of breast; Z78.0 Asymptomatic menopausal state
CPT/HCPCS: 77063; 77067; 77080

== ENCOUNTER → 2024-05-15 | Outpatient (CLI) | payer MEDICARE, SELFPAY ==
[2019-06-15 14:33] VITALS: BMI 32.3
--- NOTE | 2024-05-15 08:29 | BI_ITS ---
MAMMOGRAPHY - BILATERAL SCREENING REASON FOR EXAM: Female, 73 years old. Routine annual screening examination. PERTINENT HISTORY: Personal history of breast cancer. Prior left lumpectomy with radiation therapy. Left excisional breast biopsy. Sr. with breast cancer. TECHNIQUE: Digital bilateral breast donna (3D mammographic acquisition) in the CC and MLO projections. 2-D mediolateral oblique (MLO) and craniocaudad (CC) views of both breasts were obtained. CAD: Full Field Digital Mammography with Computer Added Detection was performed. COMPARISON: Comparison is made with prior study dated April 18, 2023 and March 16, 2022. FINDINGS: Breast Composition: There are scattered areas of fibroglandular density. Once again, the patient is status post lumpectomy in the deep upper medial aspect of the left breast with resultant postoperative scarring. There is a 7.4 mm x 8.3 mm relatively well-defined nodule in the deep axillary region of the right breast. Correlation with ultrasound recommended. A tissue clip marker is once again seen within a tiny nodule in the central deep medial portion of the right breast. No other significant abnormalities are identified. BI/SCRN MAMM (CAD)W/DONNA BILAT IMPRESSION: Status post left lumpectomy as described. 8.3 mm x 7.4 mm nodule in the axillary lateral aspect of the right breast. Correlation with ultrasound recommended. ASSESSMENT CATEGORY: BIRADS Category 0: Incomplete. Need additional imaging evaluation. A letter regarding these results will be sent to the patient by the facility within 30 days. Approximately 10% of breast cancers are not detected by mammography. A normal mammogram should not delay biopsy of a clinically suspicious abnormality. [id number] Electronically Signed: Jesus Rodriguez MD at 9:40 EST ,
== END | disposition home or self-care (01) ==
LOC: OPBI 08:27
PROVIDERS: PCP Family Medicine; Referring Provider Family Medicine; Visit Provider Family Medicine
DX: Z00.00 Encounter for general adult medical examination without abnormal findings (principal); Z12.31 Encounter for screening mammogram for malignant neoplasm of breast
CPT/HCPCS: 77063; 77067

== ENCOUNTER → 2024-05-22 | Outpatient (CLI) | payer MEDICARE, SELFPAY ==
[2019-06-15 14:33] VITALS: BMI 32.3
--- NOTE | 2024-05-22 09:01 | US_ITS ---
STUDY: ULTRASOUND BREAST - RIGHT REASON FOR EXAM: Female, 73 years old. Abnormal screening mammogram. TECHNIQUE: Axial and longitudinal images of the RIGHT breast were performed with a high resolution ultrasound transducer. # OF IMAGES: 30 COMPARISON: Comparison is made with prior mammogram dated May 15, 2024. FINDINGS: RIGHT Breast: The axillary region of the right breast was examined with ultrasound. There is an 8 mm x 7 mm x 1 cm hypoechoic nodule with vascularity. This is not a typical cyst. Biopsy recommended. US/Breast Limited Unilateral IMPRESSION: 8 mm x 7 mm x 1 cm hypoechoic nodule in the axillary region of the breast as described. Biopsy recommended. ASSESSMENT CATEGORY: BIRADS Category 4: Suspicious - Biopsy Should Be Considered. A letter regarding these results will be sent to the patient by the facility within 30 days. Electronically Signed: Jesus Rodriguez MD at 11:56 EST ,
== END | disposition home or self-care (01) ==
LOC: OPUS 09:05
PROVIDERS: PCP Family Medicine; Referring Provider Family Medicine; Visit Provider Family Medicine
DX: R92.8 Other abnormal and inconclusive findings on diagnostic imaging of breast (principal)
CPT/HCPCS: 76642

== ENCOUNTER → 2024-05-29 | Outpatient (CLI) | payer MEDICARE, SELFPAY ==
[2019-06-15 14:33] VITALS: BMI 32.3
--- NOTE | 2024-05-29 | IMM_PTH ---
PATIENT: ERNESTO VALDEZ LOC: [facility] U#:[id number] AGE/SX: 73/F ROOM: RE05/29/[address]: Dr. Darrel Chaudhry MD : 1950 BED: DIS: 05/29/2024 SPEC #: [id number] RECD: 06/02/24 10:08 STATUS: CHELSI REQ #: [id number] SOPHIA: 05/29/24 00:[address]: Darrel Chaudhry DEPT: IMMUNOHISTOCHEMISTRY RECD BY: Jose Moraes ENTERED: 06/02/24 10:09 SP TYPE: IMMUNO OTHR DR: Dr. Graciela Oconnor DO Tissues: Right breast, NOS Procedures: E-CAD (initial) CALPONIN-1 (add) CK5-6 (add) CK8 (add) HER2 RAVINDRA (add) KI-67 (add) P53 (add) ID (add) P40 (add) ER (initial) PHYSICIAN [facility] INSTIT[facility] [address] [address] SPECIMEN INFORMATION: Tissue Source: Right breast tissue Clinical Info: Right breast biopsy Specimen Number: [id number] CPT code: [id number] METHODOLOGY: Deparaffinized sections of prefer/formalin-fixed tissue or PAP/DQ stained slides are incubated with monoclonal/polyclonal antibodies/oligonucleotide probes. Localization is made via biotin free immunoperoxidase method. Appropriate controls are performed and reacted as expected. Results on target cell population are indicated in the following table: RESULTS: ANTIBODY / CLONE RESULT E-Cad (ECH-6) positive CK8 (95stlzM16) positive Calponin-1 (DM782D) negative CK5-6 (D5 & 1684) negative P40 (BC28) negative P53 (DO-7) positive, a few cells (wild type pattern) Ki-67 (30-9) positive, low ~10% MORPHOMETRIC ANALYSIS ER (clone [id number]) >95%, strong intensity ID (clone 16/1E2) >95%, moderate intensity Her-2Neu (clone CB11) 1+ The prognostic test for HER2 is performed on formalin-fixed paraffin embedded tissue. A 3+ (positive) staining pattern is defined as intense, homogeneous, complete, circumferential membranous staining in >10% of contiguous tumor cells. A similar weak (2+) staining pattern is interpreted as equivocal. ALDO follow-up testing is recommended for all equivocal cases. Positivity/negativity for ER/ID is reported if > or < 1% of the tumor cells are immuno- reactive, respectively. The ASCO/CAP criteria is used for scoring. Reference: Journal of Clinical Oncology, 2013; 31:9866-3615 & 2010; 16:5430-7454. Ischemic time: Less than one hour. Duration of fixation: 7 Hrs; Sample Adequate: Yes. These assays have not been validated on decalcified tissues. Results should be interpreted with caution given the likelihood of false negativity on decalcified specimens or fixation greater than 72 hours. Alternative testing methods (FISH/dualISH for Her2; gene expression for ER) are recommended, if applicable. Please notify the laboratory if additional testing is required. These tests were developed and their performance characteristics determined by [facility]. They may not have been cleared or approved by the U.S. Food and Drug Administration. The FDA has determined that such clearance or approval is not necessary. The above immunohistochemical/dualISH markers are ordered and reviewed by the Pathologist. INTERPRETATION: Right breast, core biopsy: Invasive ductal carcinoma. Positive for estrogen receptors (favorable prognostic indicator). Positive for progesterone receptors (favorable prognostic indicator). Negative for overexpression of [id number]. SJ.mr 06/03/2024
--- NOTE | 2024-05-29 13:45 | BRBX_PTH ---
PATIENT: ERNESTO VALDEZ LOC: [facility] U#:[id number] AGE/SX: 73/F ROOM: RE05/29/[address]: Dr. Darrel Chaudhry MD : 1950 BED: DIS: 05/29/2024 SPEC #: [id number] RECD: 05/29/24 14:09 STATUS: CHELSI REMuriel #: [id number] SOPHIA: 05/29/24 13:[address]: Darrel Chaudhry DEPT: SURGICAL PATHOLOGY RECD BY: Rose Wilks ENTERED: 06/01/24 08:22 SP TYPE: BREAST BX OTHR DR: Dr. Graciela Oconnor, DO Tissues: Right breast, NOS Procedures: Surgery Specimen Level IV HEADER OPERATION: Right breast mass PRE-OP DIAGNOSIS: Right breast biopsy TISSUE SUBMITTED: Right breast tissue MICROSCOPIC DIAGNOSIS Right breast, core biopsy: Invasive ductal carcinoma. See cancer summary in the comment section. SJ.mr 06/02/2024 COMMENT INVASIVE BREAST CANCER SUMMARY: Procedure: Needle core biopsy Specimen Laterality: Right Tumor site: Not specified Histologic type: Invasive ductal carcinoma, not otherwise specified Provisional Histologic grade: Glandular/tubule Differentiation Score: 2 Nuclear Pleomorphism Score: 2 Mitotic Rate Score: 1 Overall grade: Grade 1 (score of 5) Tumor Size (greatest dimension): invasive carcinoma measures 0.8cm in greatest length. Ductal Carcinoma in situ: Not identified Angiolymphatic Invasion: Not identified Microcalcifications: Not identified Additional Findings: None Breast Marker Study: [id number] ER: positive (>95%, strong intensity) WA: positive (>95%, moderate intensity) Her2: negative (1+) Ki67: positive, low (~10%) [id number]: not applicable The above summary is in compliance with [employer] (CAP) Cancer Protocols Checklist and [place] Joint Committee on Cancer (AJCC), Staging Manual, 8th Ed. Immunohistochemistry ([id number]) supports the above diagnosis. This case has been reviewed in consultation with Dr. Dupont who concurs with the above diagnosis. IDC:PW MICROSCOPIC DESCRIPTION Slides are reviewed. GROSS DESCRIPTION Received in fixative is one container labeled with the patient's name and designated Right breast tissue. The specimen consists of two elongated fragments of yuan-yellow fibroadipose tissue measuring in aggregate 1.2 x 0.2 x 0.1cm. The entire specimen is submitted in one cassette. 06/01/2024 TC:0 CPT:30137
== END | disposition home or self-care (01) ==
LOC: LABSPEC 14:24
PROVIDERS: PCP Family Medicine; Referring Provider Surgery; Visit Provider Surgery
DX: C50.911 Malignant neoplasm of unspecified site of right female breast (principal)
CPT/HCPCS: 88305; 88341; 88342

== ENCOUNTER 2024-07-08 06:58 | Day surgery (SDC) | payer MEDICARE, SELFPAY ==
[2019-06-15 14:33] VITALS: BMI 32.3
--- NOTE | 2024-06-26 08:30 | EKG12_ITS ---
Test Reason : PREOP Blood Pressure : */* mmHG Vent. Rate : 84 BPM Atrial Rate : 84 BPM P-R Int : 160 ms QRS Dur : 76 ms QT Int : 362 ms P-R-T Axes : 20 3 38 degrees QTcB Int : 427 ms Normal sinus rhythm NORMAL When compared with ECG of 18-May-2019 16:23, Criteria for Septal infarct are no longer Present Borderline criteria for Inferior infarct are now Present Confirmed by Anjum Arvizu ([id number]), makeup editor JOHNNIE GARNICA ([id number]) on 06/26/2024 2:21:32 PM Referred By: Darrel Chaudhry Confirmed By: Anjum Arvizu
[2024-06-26 09:05] LABS: Hematocrit 38.4 % (37-47); Mean Corp Hgb Conc 33.9 g/dL (32-36); Mean Corpuscular Hgb 29.1 pg (27.0-32.0); Mean Corpuscular Volume 85.9 fL (81-99); Mean Platelet Vol. 9.8 fl (6.2-12.0); Platelet Count 228 K/mm3 (150-450); RBC Distribution Width CV 12.2 % (11.6-14.6); RBC Distribution Width SD 38.4 fl (35.1-43.9); Red Blood Count 4.47 M/mm3 (4.2-5.4)
--- NOTE | 2024-06-26 16:09 | PAT.ANESEVAL ---
Pre-Assessment Diagnosis/Proposed Procedure Planned Operative Procedure(s): STERO WIRE LOC RIGHT PARTIAL MASTECTOMY SENTINEL LYMPH BIOPSY,BLUE DYE Anesthesia History Anesthesia History - critical care unit nurse: Anesthesia History - critical care unit nurse Hx Hospitalization No 06/24/24 08:31 Any Problems With Anesthesia No 06/24/24 08:31 Cholinesterase deficiency No 06/24/24 08:31 You/Your Family Experience No 06/24/24 08:31 fever (hyperthermia) with Relationship Recent Exposure to Contagious No 05/25/19 06:17 Disease Does patient have nerve No 06/24/24 08:31 stimulator Patient instructed to have device shut off --Does patient have Pacemaker or ICD? When Was Last Pacemaker Check QUESTION #4 FULL TEXT: You/Your Family Experience fever (hyperthermia) with Anesthesia Last Oral Intake Last Oral intake: Last Oral Intake NPO since Meds taken in AM with sips of water? Meds patient instructed to take am of surgery PONV PONV - critical care unit nurse: PONV - critical care unit nurse Female Yes 06/24/24 08:31 HX of Motion Sickness No 06/24/24 08:31 HX of N/V After Surgery No 06/24/24 08:31 Non-Smoker Yes 06/24/24 08:31 Duration of Surgery greater Yes 06/24/24 08:31 than 60 minutes Number of Risk Factors 3 06/24/24 08:31 PONV Score Moderate Risk 06/24/24 08:31 Height & Weight Height & Weight: Anesthesia: Height & Weight Height 5 ft 6 in 06/15/24 14:33 Respiratory Assessment Respiratory Assessment - critical care unit nurse: Respiratory Tract Infection Hx - critical care unit nurse Hx Respiratory Tract Infection No 06/24/24 08:31 STOP Sleep Apnea STOP Sleep Apnea - critical care unit nurse: STOP Sleep Apnea - critical care unit nurse Hx Hypertension Yes: CONTROLLED WITH MED 06/24/24 08:31 Hx Sleep Apnea No 06/24/24 08:31 CPAP BIPAP Do you snore loudly (louder No 06/24/24 08:31 than talking or can be heard Do you often feel tired/ No 06/24/24 08:31 fatigued/ sleepy during daytime? Has anyone observed you stop No 06/24/24 08:31 breathing during sleep? STOP Results Negative 06/24/24 08:31 QUESTION #5 FULL TEXT : Do you snore loudly (louder than talking or can be heard through closed doors)? Tobacco Use History Tobacco Use History - critical care unit nurse: Tobacco Use History - critical care unit nurse Tobacco Use Smoking Status Former smoker 06/24/24 08:31 Hx Tobacco Use No 06/24/24 08:31 Years Smoking Packs Smoked per Day Smoking Cessation Date was No - quit smoking greater 06/24/24 08:31 within the last 15 years than 15 years ago Hx Smoking Cessation Date Hx Smoking Cessation No 06/24/24 08:31 Counseling Hematologic Medial History Hematologic Hx - critical care unit nurse: Hematologic Medical Hx - documentation clerk Hx of Blood Transfusion No 06/24/24 08:31 Hx of Transfusion in last 3 No 06/24/24 08:31 Months Date of Last Transfusion (if within last 3 months) Ever experience any problems No 06/24/24 08:31 with transfusion(s)? Specify any problems Hx of Preganancy in last 3 No 06/24/24 08:31 Months Nurse Filling Out Transfusion DSCHRIBER 06/24/24 08:31 & Questions: Date: 06/24/24 06/24/24 08:31 Time: 08:32 06/24/24 08:31 Patient unable to answer at this time (ie. confused, unrespo /Reproduction History /Reproductive History - critical care unit nurse: /Reproductive Hx- critical care unit nurse Hx Now No 06/24/24 08:31 Gestational Age (in weeks): EDC: Hx Hx Para Hx Section SAB No 06/24/24 08:31 PFSH Medical History (Updated 06/24/24 @ 08:37 by Deirdre Hercules) Post-menopausal Cancer Depression Thyroid disease History of renal disease High cholesterol History of diverticulitis Former smoker COPD (chronic obstructive pulmonary disease) Shortness of breath on exertion History of edema History of stress test Abnormal mammogram of right breast Ductal carcinoma in situ (DCIS) of left breast Hypertension Home Medications ?Medication ?Instructions ?Recorded ?Last Taken ?Type bupropion HCl 300 mg 24 hr tablet, 300 mg PO QAM 05/04/19 Unknown History extended release clobetasol 0.05 % topical cream 1 dose topical PRN PRN skin 05/04/19 Unknown History irritation alendronate 70 mg tablet 70 mg PO QWEEK 05/29/24 Unknown History fluticasone 250 mcg-salmeterol 50 1 ea inhalation BID 05/29/24 Unknown History mcg/dose blistr powdr for inhalation levothyroxine 25 mcg tablet 50 mcg PO DAILY hypothyroid 05/29/24 Unknown History losartan 50 mg tablet 50 mg PO QDAY 05/29/24 Unknown History meloxicam 15 mg tablet 15 mg PO QDAY PRN pain 05/29/24 Unknown History pravastatin 40 mg tablet 40 mg PO QHS 05/29/24 Unknown History Allergy/AdvReac Type Severity Reaction Status Date / Time Sulfa (Sulfonamide AdvReac Nausea Verified 06/24/24 08:28 Antibiotics) Family History Mother Rheumatoid arthritis High cholesterol Sister Diabetes Father Emphysema lung Surgical History (Updated 06/24/24 @ 08:37 by Deirdre Hercules) S/P laparoscopic cholecystectomy S/P breast biopsy, right Hx of colonoscopy Hx of dilation and curettage Hx of nasal septoplasty Hx of left breast biopsy History of lumpectomy of left breast History of left oophorectomy Hx of hemorrhoidectomy Hx of tonsillectomy Social History Smoking Status: Former smoker alcohol intake: current alcohol intake frequency: holidays/special occasions only substance use type: does not use caffeine: Yes what type of physical activity do you participate in: none frequency: does not exercise Audit: Pertinent Findings Pertinent Findings EKG Perinent findings: June 26, 2024. Normal sinus rhythm. Compared to EKG of May 26, 2019, criteria for septal infarct are no longer present. Borderline criteria for inferior infarct are now present. Stress test pertinent findings: November 24, 2020. No evidence of ischemia or prior infarction. Normal ejection fraction of greater than 70%. Recommendation Anesthesia Recommendation Anesthesia recommendation: OPTIMIZED for anesthesia
[2024-07-08] VITALS (11 sets, daily range): BP systolic 122–143; BP diastolic 74–86; PULSE 68–85; RESP 14–16; TEMP 36.3–36.9; O2SAT 94–99; BMI 31.6
--- NOTE | 2024-07-08 07:00 | BI_ITS ---
PROCEDURE: BREAST BIOPSY SPECIMEN REASON FOR EXAM: Lumpectomy. TECHNIQUE: Imaging of the operative specimen was obtained. COMPARISON: Prior exam(s) dating back to May 15, 2024.. FINDINGS: The specimen contains the needle localization wire as well as the tissue clip in the mass. BI/Breast Biopsy Specimen IMPRESSION: The specimen contains the mass. Follow-up code: Routine Follow-up Reading Location: [place] [address]
--- NOTE | 2024-07-08 07:14 | PRE.ANES_ITS ---
ASA Classification* ASA Classification ASA Classification: 2 Assessment & Plan Anesthesia* Anesthesia Assessment Anesthesia Assessment: Discussed sedation and/or anesthesia options, risks, benefits, and alternatives with patient/parents/legal guardian/POA. Questions invited. The patient/parents/legal guardian/POA seems to understand and agrees to proceed with anesthesia plan. Reviewed the physical assessment, medical history, allergy history and patient home medications list prior to surgery/procedure/anesthetic and documented any changes. Performed airway and anesthesia risk assessments. Anesthesia Type Anesthesia Type: General Anesthesia Focused Assessment* Airway Assessment Mouth opens: >3 cm Mallampati Score: II Focused Labs Anesthesia Preop lab: CBC WBC 4.0 K/mm3 (4.4-11.0) L 06/26/24 08:51 06/26/24 RBC 4.47 M/mm3 (4.2-5.4) 06/26/24 08:51 06/26/24 Hgb 13.0 g/dL (12.0-15.0) 06/26/24 08:51 06/26/24 Hct 38.4 % (37-47) 06/26/24 08:51 06/26/24 Plt Count 228 K/mm3 (150-450) 06/26/24 08:51 06/26/24 CHEMISTRY Potassium 3.2 mmol/L (3.5-5.1) L 07/21/19 15:40 07/21/19 Sodium 139 mmol/L (136-145) 07/21/19 15:40 07/21/19 BUN 19 mg/dL (7-18) H 07/21/19 15:40 07/21/19 Creatinine 0.97 mg/dL (0.55-1.02) 07/21/19 15:40 07/21/19 Glucose 91 mg/dL (74-106) 07/21/19 15:40 07/21/19 TSH 2.880 uIU/mL (0.300-4.200) 06/26/24 08:51 05/31 12/21 COAG Pre-Assessment Diagnosis/Proposed Procedure Planned Operative Procedure(s): STERO WIRE LOC RIGHT PARTIAL MASTECTOMY SENTINEL LYMPH BIOPSY,BLUE DYE Anesthesia History Anesthesia History - outside sales account manager: Anesthesia History - outside sales account manager Hx Hospitalization No 06/24/24 08:31 Any Problems With Anesthesia No 06/24/24 08:31 Cholinesterase deficiency No 06/24/24 08:31 You/Your Family Experience No 06/24/24 08:31 fever (hyperthermia) with Relationship Recent Exposure to Contagious No 05/25/19 06:17 Disease Does patient have nerve No 06/24/24 08:31 stimulator Patient instructed to have device shut off --Does patient have Pacemaker or ICD? When Was Last Pacemaker Check QUESTION #4 FULL TEXT: You/Your Family Experience fever (hyperthermia) with Anesthesia Last Oral Intake Last Oral intake: Last Oral Intake NPO since Meds taken in AM with sips of water? Meds patient instructed to take am of surgery PONV PONV - outside sales account manager: PONV - outside sales account manager Female Yes 06/24/24 08:31 HX of Motion Sickness No 06/24/24 08:31 HX of N/V After Surgery No 06/24/24 08:31 Non-Smoker Yes 06/24/24 08:31 Duration of Surgery greater Yes 06/24/24 08:31 than 60 minutes Number of Risk Factors 3 06/24/24 08:31 PONV Score Moderate Risk 06/24/24 08:31 Height & Weight Height & Weight: Anesthesia: Height & Weight Height 5 ft 6 in 06/15/24 14:33 Respiratory Assessment Respiratory Assessment - outside sales account manager: Respiratory Tract Infection Hx - outside sales account manager Hx Respiratory Tract Infection No 06/24/24 08:31 STOP Sleep Apnea STOP Sleep Apnea - outside sales account manager: STOP Sleep Apnea - outside sales account manager Hx Hypertension Yes: CONTROLLED WITH MED 06/24/24 08:31 Hx Sleep Apnea No 06/24/24 08:31 CPAP BIPAP Do you snore loudly (louder No 06/24/24 08:31 than talking or can be heard Do you often feel tired/ No 06/24/24 08:31 fatigued/ sleepy during daytime? Has anyone observed you stop No 06/24/24 08:31 breathing during sleep? STOP Results Negative 06/24/24 08:31 QUESTION #5 FULL TEXT : Do you snore loudly (louder than talking or can be heard through closed doors)? Tobacco Use History Tobacco Use History - outside sales account manager: Tobacco Use History - outside sales account manager Tobacco Use Smoking Status Former smoker 06/24/24 08:31 Hx Tobacco Use No 06/24/24 08:31 Years Smoking Packs Smoked per Day Smoking Cessation Date was No - quit smoking greater 06/24/24 08:31 within the last 15 years than 15 years ago Hx Smoking Cessation Date Hx Smoking Cessation No 06/24/24 08:31 Counseling Hematologic Medial History Hematologic Hx - outside sales account manager: Hematologic Medical Hx - quality assurance Hx of Blood Transfusion No 06/24/24 08:31 Hx of Transfusion in last 3 No 06/24/24 08:31 Months Date of Last Transfusion (if within last 3 months) Ever experience any problems No 06/24/24 08:31 with transfusion(s)? Specify any problems Hx of Preganancy in last 3 No 06/24/24 08:31 Months Nurse Filling Out Transfusion DSCHRIBER 06/24/24 08:31 & Questions: Date: 06/24/24 06/24/24 08:31 Time: 08:32 06/24/24 08:31 Patient unable to answer at this time (ie. confused, unrespo /Reproduction History /Reproductive History - outside sales account manager: /Reproductive Hx- outside sales account manager Hx Now No 06/24/24 08:31 Gestational Age (in weeks): EDC: Hx Hx Para Hx Section SAB No 06/24/24 08:31 Active Medications Active Medications: Current Medications Generic Name Dose Route Start Last Admin Trade Name Freq PRN Reason Stop Dose Admin Cefazolin Sodium 2 gm/ N/A 20 mls @ 400 mls/hr 07/08/24 08:30 IV 07/08/24 08:32 PREOP ONE PFSH Medical History Post-menopausal Cancer Depression Thyroid disease History of renal disease High cholesterol History of diverticulitis Former smoker COPD (chronic obstructive pulmonary disease) Shortness of breath on exertion History of edema History of stress test Abnormal mammogram of right breast Ductal carcinoma in situ (DCIS) of left breast Hypertension Home Medications ?Medication ?Instructions ?Recorded ?Last Taken ?Type bupropion HCl 300 mg 24 hr tablet, 300 mg PO QAM 05/04 Unknown History extended release clobetasol 0.05 % topical cream 1 dose topical PRN PRN skin 05/04/19 Unknown History irritation alendronate 70 mg tablet 70 mg PO QWEEK 05/29/24 Unkn own History fluticasone 250 mcg-salmeterol 50 1 ea inhalation BID 05/29/24 Unknown History mcg/dose blistr powdr for inhalation levothyroxine 25 mcg tablet 50 mcg PO DAILY hypothyroi d 05/29/24 Unknown History losartan 50 mg tablet 50 mg PO QDAY 05/29/24 Unkno wn History meloxicam 15 mg tablet 15 mg PO QDAY PRN pain 05/29 Unknown History pravastatin 40 mg tablet 40 mg PO QHS 05/29/24 Unknow n History Allergy/AdvReac Type Severity Reaction Status Date / Time Sulfa (Sulfonamide AdvReac Nausea Verified 06/24/24 08:28 Antibiotics) Family History Mother Rheumatoid arthritis High cholesterol Sister Diabetes Father Emphysema lung Surgical History S/P laparoscopic cholecystectomy S/P breast biopsy, right Hx of colonoscopy Hx of dilation and curettage Hx of nasal septoplasty Hx of left breast biopsy History of lumpectomy of left breast History of left oophorectomy Hx of hemorrhoidectomy Hx of tonsillectomy Social History Smoking Status: Former smoker alcohol intake: current alcohol intake frequency: holidays/special occasions only substance use type: does not use caffeine: Yes what type of physical activity do you participate in: none frequency: does not exercise Review of Systems (Anesthesia) ROS Narrative System reviewed and no additional complaints, except as documented.
--- NOTE | 2024-07-08 07:20 | NM_ITS ---
PROCEDURE: LYMPH NODE INJECTION ONLY REASON FOR EXAM: RIGHT BREAST CANCER TECHNIQUE: Subdermal injection of 594 microcuries of Lymphoseek. RADIOPHARMACEUTICAL: 594 microcuries of Lymphoseek. COMPARISON: The radiopharmaceutical was injected subdermally in the upper breast for lymph node imaging. FINDINGS: Pharmaceutical was injected subdermally in the upper breast for lymph node imaging. NM/Lymph Node Injection Only IMPRESSION: Radiopharmaceutical was injected subdermally in the upper aspect of the right b reast for lymph node imaging. Reading Location: [place] [address]
--- NOTE | 2024-07-08 07:21 | PCM.HP.BLA ---
History and Physical Date of Admission: 07/08/24 Intake Vital Signs 05/29/2512:37 06/15/2513:33 Height 5 ft 6 in 5 ft 6 in Weight: 202 lb 202 lb BMI 32.5 32.5 BP 149/92 H 138/91 H Blood Pressure Location Rt brachial Rt brachial Position Sitting Sitting Respiration 16 17 Pulse 90 Pulse Source Monitor Pulse Oximetry (%) 98 Oxygen Delivery Method room air Intake Visit Reasons: DISCUSS BREAST SURGERY Chief Complaint: discuss breast surgery Is patient in pain?: No Allergies Sulfa (Sulfonamide Antibiotics) Adverse Reaction (Verified 06/15/24 14:34) Nausea Medications ?Medication ?Instructions ?Recorded ?Confirmed ?Type bupropion HCl 300 mg 24 hr tablet, 300 mg PO QAM 05/04/19 06/15/24 History extended release clobetasol 0.05 % topical cream 1 dose topical PRN PRN skin 05/04/19 06/15/24 History irritation alendronate 70 mg tablet 70 mg PO QWEEK 05/29/24 06/15/24 History fluticasone 250 mcg-salmeterol 50 1 ea inhalation BID 05/29/24 06/15/24 History mcg/dose blistr powdr for inhalation levothyroxine 25 mcg tablet 50 mcg PO DAILY hypothyroid 05/29/24 06/15/24 History losartan 50 mg tablet 50 mg PO QDAY 05/29/24 06/15/24 History meloxicam 15 mg tablet 15 mg PO QDAY 05/29/24 06/15/24 History pravastatin 40 mg tablet 40 mg PO QDAY 05/29/24 06/15/24 History Have you fallen in the past year?: No PFSH Medical History Abnormal mammogram of right breast Ductal carcinoma in situ (DCIS) of left breast Hypertension Surgical History S/P laparoscopic cholecystectomy S/P breast biopsy, right Hx of colonoscopy Hx of dilation and curettage Hx of nasal septoplasty Hx of left breast biopsy History of lumpectomy of left breast History of left oophorectomy Hx of hemorrhoidectomy Hx of tonsillectomy Family History Mother Rheumatoid arthritis High cholesterolSister DiabetesFather Emphysema lung Social History Smoking Status: Former smoker alcohol intake: current alcohol intake frequency: holidays/special occasions only substance use type: does not use caffeine: Yes what type of physical activity do you participate in: none frequency: does not exercise HPI HPI HPI: Patient is a 73-year-old female here with right breast cancer she is here to discuss her surgery.. ROS General General: Yes breast cancer; No weight change, appetite, fatigue, colon cancer or weakness HEENT HEENT: No difficulty swallowing, eye injury, eye surgery, swollen glands or hoarseness Endo Endocrine: Yes thyroid disease; No diabetes mellitus, thyroid cancer, Hair loss, heat intolerance or cold intolerance Skin Skin: No rash or changing moles Breast Breast: Yes right breast lump and abnormal US; No left breast lump, nipple discharge, breast pain, abnormal mammogram or breast enlargement Musc Musculoskeletal: No back problems, arthritis, rheumatoid arthritis, gout or joint pain Cardio Cardiovascular: Yes high blood pressure; No murmur, pacemaker, heart disease, atrial fibrillation, heart attack, heart stent, palpitations, shortness of breat with exertion or chest pain Psych Psychiatric: No depression, anxiety or hearing voices Resp Respiratory: No shortness of breath, No sleep apnea, No cough, No COPD, No asthma, No emphysema and No wheezing Gastro Gastrointestinal: No abdominal pain, No nausea or vomiting, No diarrhea, No constipation, No blood in stool, No acid reflux, No hemorrhoids, No ulcers, No gallbladder problem and No black,tarry stools Tee Hematologic: No blood thinners, No blood disorders, No bleeding, No anemia and No blood clots Neuro Neurologic: No system reviewed and no additional complaints, except as documented, No as per HPI, No abnormal gait, No abnormal hearing, No abnormal movements, No abnormal speech, No behavioral changes, No burning sensations, No confusion, No convulsions, No disequilibrium, No dizziness, No localized weakness, No frequent falls, No headache(s), No lack of coordination, No loss of vision, No memory loss, No numbness, No other visual disturbances, No radicular pain, No restless legs, No sensory deficit, No syncope, No tingling, No tremor(s), No weakness and No other Exam Const General: cooperative Orientation: alert and oriented x3 HENMT Head: normal to inspection Neck Neck: normal visual inspection and full ROM Chest Chest palpation & inspection: normal inspection of the chest Resp Effort & Inspection: normal respiratory effort Auscultation: clear to auscultation bilaterally Cardio Rate: regular rate Rhythm: regular rhythm GI Inspection: non-distended Palpation: soft and nontender Skin General: no rashes or lesions noted Neuro General: patient alert and patient oriented x3 Extrem General: full ROM Psych Appearance: grossly normal Mental Status: mental status grossly normal Assessment and Plan Assessment and Plan (1) Invasive ductal carcinoma of right breast: Status: Acute Plan: The patient has an invasive ductal carcinoma of the right breast. I discussed stereo guided wire localization as well as partial mastectomy and sentinel lymph node biopsy with blue dye. Patient understands the risks of bleeding, infection, nerve injury, need for further surgery. Darrel Chaudhry MD Pager: [facility] [address] [place] [address], [address] [place] [address] Office: I have seen and examined the patient and reviewed the H&P. there are no clinical changes
[2024-07-08] MEDS: 0.9% Normal Saline (1000mL) 1,000 ML 15 ML IV (07:39)
--- NOTE | 2024-07-08 08:30 | BREAST_PTH ---
PATIENT: ERNESTO VALDEZ [place] [facility] [place][id number] AGE/SX: 73/F ROOM: RE07/08/[address]: Dr. Darrel Chaudhry MD : 1950 BED: DIS: 07/08/2024 SPEC #: [id number] RECD: 07/08/24 10:09 STATUS: CHELSI REMuriel #: [id number] SOPHIA: 07/08/24 08:[address]: Darrel Chaudhry DEPT: SURGICAL PATHOLOGY RECD BY: Jose Moraes ENTERED: 07/08/24 10:09 SP TYPE: BREAST OTHR DR: Dr. Graciela Oconnor DO Tissues: A - Axillary lymph node, NOS B - Right breast, NOS Procedures: Frozen Section (charge) Immunohistochemical Stains Surgery Specimen Level V IHC Stain ADDITIONAL HEADER OPERATION: Breast, lumpectomy, sentinel lymph node biopsy, blue dye / radiotracer PRE-OP DIAGNOSIS: Invasive ductal carcinoma of right breast TISSUE SUBMITTED: A- Right axilla sentinel lymph node, B- Right breast mass *long- lateral, short-superior* FROZEN SECTION DIAGNOSIS A. Right axilla sentinel lymph node, biopsy: Negative for metastasis. 07/08/2024 MICROSCOPIC DIAGNOSIS A: SENTINEL LYMPH NODE, RIGHT AXILLA, EXCISION: * Negative for metastasis (0/1) - see note. Note: pancytokeratin IHC was utilized in the evaluation. B: RIGHT BREAST, NEEDLE-LOCALIZED LUMPECTOMY: * Invasive ductal carcinoma NST, focally involving the superior surgical margin (pT1c, pN0) * Grade 1 (tubule 1, nuclear 2, mitotic 1) * DCIS, extensive, nuclear grade 2, negative for necrosis, with microcalcifications, closely approaching the posterior and supero-posterior surgical margins * See Comment for Synoptic Report. COMMENT SYNOPTIC REPORT FOR INVASIVE BREAST CARCINOMA Specimen (P=partial, M=mastectomy): P Laterality (R=right, L=left): R Focality (U=unifocal, M=multifocal): U Tumor size (cm): 1.2 x 0.7 x 0.7 cm Histologic type: invasive ductal carcinoma Histologic grade: 1 ??? Tubule score (1-3): 1 ??? Nuclear score (1-3): 2 ??? Mitotic score (1-3): 1 Skin, nipple epidermis, skeletal muscle (I=involved, N=negative, NA=not applicable): NA Lymphovascular invasion (E=extensive, F=focal, N=not identified): N Margins of main specimen (P=positive, N=negative): P (see comment below) Distance to closest margin of main specimen (mm): 0 Designation of closest margin of main specimen: superior Designation of other margins of main specimen </=1 mm: NA Re-resection margin status (P=positive, N=negative, NA=not applicable): NA DCIS (P=present, N=not identified): P ?? Nuclear grade: 2 ?? Comedo necrosis (P=present, N=not identified): N ?? Extensive intraductal component (P=present, N=not identified): P ?? Margins of main specimen (P=positive, N=negative): N ?? Distance to closest margin of main specimen (mm): < 0.5 mm ?? Designation of closest margin of main specimen: posterior ?? Designation of other margins of main specimen </=2 mm: posterior and supero-posterior ?? Longest span </= 2 mm to margin of main specimen (mm): 2 mm ?? Re-resection margin status (P=positive, N=negative, NA=not applicable): NA Regional lymph nodes: ?? Total number of lymph nodes: 1 ?? Number of sentinel lymph nodes: 1 ?? Number with macrometastases: 0 ?? Number with micrometastases: 0 ?? Number with isolated tumor cells: 0 ?? Size of largest jesse metastasis (mm): NA ?? Size of extranodal extension (mm) (N=not identified): NA Estrogen receptor: positive (100% strong) Progesterone receptor: positive (95% intermediate) HER2 IHC: equivocal (2+) HER2 FISH: PENDING at [facility] (to be reported in an addendum) Specimen in which ER/NH/HER2 performed: [id number] B4 pTNM: pT1c pN0 Additional findings: Comment: Only a few invasive tumor cells are focally identified at the superior surgical margin. The above synoptic report complies, in slightly modified form, with the guidelines of the [employer] and the Association of Directors of Anatomic and Surgical Pathology for the reporting of cancer specimens MICROSCOPIC DESCRIPTION Slides are reviewed. These tests were developed and their performance characteristics determined by [facility]. They may not have been cleared or approved by the U.S. Food and Drug Administration. The FDA has determined that such clearance or approval is not necessary. The above immunohistochemical/dualISH markers are ordered and reviewed by the Pathologist. GROSS DESCRIPTION A: The specimen is received fresh for intraoperative consultation labeled with the patient's name and designated right axilla sentinel lymph node. The specimen consists of 1 segment of yellow-pink fatty soft tissue measuring 2 x 1 x 1 cm. Bivalved and totally frozen in 1 block. Totally submitted for permanent sections in 1 cassette after frozen section consultation. TE1. Eh 07/09/24 B: The specimen is received fresh for intraoperative consultation labeled with the patient's name and designated right breast mass; long=lateral, short=superior. The specimen consists of a segment of yellow fatty tissue with two sets of sutures on it designated as above. It measures 5.7 x 4.2 x 1.5 cm. A localization wire protrudes out of the superior aspect of the specimen. The specimen is inked as follows: Posterior is black, anterior is vikram, superior is blue, inferior is green, medial is yellow, and lateral is orange. The specimen is sectioned from medial to lateral revealing 1 ill-defined, irregularly-shaped firm white-gross mass measuring 1.2 x 0.7 x 0.7 cm. The mass is located 1 cm from the superior margin, 5 mm from the inferior margin, 4 mm from the posterior margin, 2 cm from the medial margin and 2.5 cm from the lateral margin. It is very close to and possibly involves the anterior vikram margin. A tiny metal biopsy clip is embedded in the medial aspect of the mass. No other lesions are identified. Cold ischemia time is 37 minutes. The entire mass and other truck sales representative sections are submitted in 9 cassettes as follows (RS9): Cassette summary: B1,B2- mass with anterior, superior and posterior margins. B3- superior and anterior perpendicular margins B4, B5- remainder of mass B6- inferior perpendicular margin B7-lateral perpendicular margin B8-medial perpendicular margin B9- tissue located posterior and medial to mass. CPT:[id number] ADDENDUM ADDENDUM ADDENDUM ADDENDUM ADDENDUM ADDENDUM ADDENDUM ADDENDUM ADDENDUM ADDENDUM ADDENDUM ADDENDUM ADDENDUM ADDENDUM ADDENDUM ADDENDUM 08/18/2024 10:32 ADDENDUM 08/18/2024 10:32 ADDENDUM 08/18/2024 10:32 ADDENDUM 08/18/2024 10:32 ADDENDUM 08/18/2024 10:32 This addendum is added to incorporate an outside pathology consultation report. The case was examined at [facility] by Dr. Snow (#[id number]) and the following diagnosis was rendered. B. Right breast, needle-localized lumpectomy: HER2 FISH: Not amplified / negative. HER2 SCORE: NEGATIVE HER2/CEP17 RATIO: 1.3 HER2 COPY NUMBER/CELL: 3.6 Please see complete above mentioned consultation report in EMR
[2024-07-08] MEDS: Cefazolin 2 GM in Syringe IV (08:52)
[2024-07-08] MEDS: Isosulfan Blue 1% 5 ML Vial (08:53)
[2024-07-08] MEDS: 0.9% Normal Saline (Pres. free 10 ML Vial (08:54)
--- NOTE | 2024-07-08 09:28 | OP.PCM_ITS ---
Problems Associated Problem List Diagnoses (1) Invasive ductal carcinoma of right breast: Operative Report (Standard) Operative Information Date of Procedure: 07/08/24 Pre-Operative Diagnosis: Right breast cancer Post-Operative Diagnosis: Right breast cancer upper outer quadrant ER/IA positive Surgery/Procedure Performed: 1. Right partial mastectomy 2. Right sentinel lymph node biopsy 3. Injection of blue dye long wall mining machine helper: Yes Top Loader: Dyana Allen Tasks completed by assistant surveyor: Opening and Closing Type of Anesthesia: General/Regional RN Documented Start/Stop Times: Operation Date: 07/08/24 08:30 Case Time Into Pre-Op 07/08/24 07:03 Anesthesia Start 07/08/24 08:36 Into Room 07/08/24 08:36 Out of Pre-Op 07/08/24 08:36 Procedure Start 07/08/24 09:01 Procedure End 07/08/24 09:59 Anesthesia End 07/08/24 10:05 Out of Room 07/08/24 10:05 Procedure Start Time: 09:01 Procedure Stop Time: 09:45 Select all DRAINS/GRAFTS/IMPLANTS that apply: None Estimated Blood Loss: 5 Specimen collected: Yes Description of specimen(s) removed: Right breast mass Right sentinel lymph node Description of surgery: Patient was taken to stereotactic and placed in the stereotactic table with the right breast exposed. Mammogram views revealed the mass with a clip within it. It was localized with positive and -15 degree images and targeted on the computer. Next the skin was prepped and injected with local anesthetic. The needle was placed into the breast and pictures were obtained. It appeared to be in good position and the wire was deployed and the needle was removed. Patient had mammogram and then was brought back to presurgery Patient was brought to the operating room and general anesthesia was induced. The right retroareolar space was injected with 5 cc of Lymphazurin as well as 5 cc of saline and a massage was performed. The right breast and axilla was prepped and draped in usual sterile fashion. Axillary incision was made and dissection was carried down to the axillary fascia which was incised. Using scintigraphy guidance the sentinel lymph node was identified and it was blue in color. It was dissected free sharply with clips and sharp dissection and the 10-second count was 303. There was nothing else in the axilla that was scint igraphically positive or blue or palpable. The axilla was irrigated and packed with a wet saline soaked gauze. Next attention was paid to the breast. A curvilinear incision was made at the wire and deepened to the breast tissue. Flaps were raised on either side. Next dissection was carried around the mass using electrocautery dissection. Once the mass was excised it was marked with a marking stitch and sent for mammogram and frozen section. Mammogram revealed that the clip and wire were in the sample entirely. Frozen section of the sentinel lymph node was negative. Both cavities were irrigated and closed with interrupted 3-0 Vicryl sutures. Local anesthesia was injected into both incisions and then they were closed with running 4-0 Monocryl sutures and Dermabond. Synoptic Portion: Element Response Options Operation performed with curative intent. Yes Tracer(s) used to identify sentinel nodes in the upfront surgery (non- neoadjuvant) setting (select all that apply). Dye and radiotracer Tracer(s) used to identify sentinel nodes in the neoadjuvant setting (select all that apply). N/A All nodes (colored or non-colored) present at the end of a dye-filled lymphatic channel were removed. Yes All significantly radioactive nodes were removed. Yes All palpably suspicious nodes were removed. Yes Biopsy-proven positive nodes marked with clips prior to chemotherapy were iden tified and removed. N/A Surgical Findings: None Complications Complications: No Admit VTE Documentation VTE Mechan Device Prophylaxis: SCD's
--- NOTE | 2024-07-08 09:35 | EX.PCM.DISCH ---
Discharge Instructions Procedure Breast Surgery Diet Discharge Diet: No restrictions Activity Discharge Activity: May Not Drive (for 2-3 days or while taking narcotic pain medications.) May shower in (days): 1 Lifting Restrictions: 15 lbs for 1 week Additional Activity Instructions:: Alternate ibuprofen and Tylenol for pain control, oxycodone for breakthrough pain Dressing / Incision Call your doctor if your incision/area has: Continuous Slow Oozing, Sudden Increased Bleeding, Increased Pain/ Swelling, Increased Redness, Foul Smelling Discharge and Swelling at the incision site Call your doctor if you observe: Fever of 101 or Higher Suture Line Care: Avoid Pulling/Pushing and Avoid Pinching/Bending Cleanse incision/area with: Soap & Water Additional Dressing/Incision Instructions:: Remove bulky dressing tomorrow. Use supportive bra for support. Follow Up Care Please Follow Up With: Darrel Chaudhry MD When: Please call to schedule 2 week follow up appointment. [phone] Test Results: Test results from this visit will be discussed in further detail at your follow-up appointment, if applicable. Discharge Plan Admission Attending Provider: Darrel Chaudhry Primary Care Provider: Graciela Oconnor Instructions Print Language: Setswana Discharge Orders/Prescriptions Prescriptions: New oxycodone 5 mg Tablet 5 - 10 mg PO Q4H PRN PRN (Reason: Pain Score 4-10) 5 Days Qty: 20 0RF No Action bupropion HCl 300 mg tablet extended release 24 hr 300 mg PO QAM clobetasol 0.05 % cream 1 dose TOPICAL PRN PRN (Reason: skin irritation) alendronate 70 mg tablet 70 mg PO QWEEK fluticasone propion-salmeterol 250-50 mcg/dose blister with device 1 ea inhalation BID pravastatin 40 mg tablet 40 mg PO QHS losartan 50 mg tablet 50 mg PO QDAY meloxicam 15 mg tablet 15 mg PO QDAY PRN (Reason: pain) levothyroxine 25 mcg tablet 50 mcg PO DAILY hydrochlorothiazide 25 mg tablet 25 mg PO QDAY Referrals / Follow Up: Graciela Oconnor DO [Primary Care Provider] - Disposition Disposition (needs filled in before D/C Order can be placed): Home, Self Care
[2024-07-08] MEDS: Bupivacaine 0.25% 30 ML Vial (09:38)
--- NOTE | 2024-07-08 10:08 | PCM.POST.ANE ---
Anesthesia: Postop Eval I Current Vital Signs Temperature: 98.5 F Pulse Rate: 76 Blood Pressure: 143/85 Respiratory Rate: 16 Pulse Ox: 99 Oxygen Delivery Method: Room Air Assessment Airway patent: Yes Spontaneous unlabored respirations: Yes Mental status: Awake and Calm nausea: No Vomiting: No Anesthesia Complication: No Fluid Hydration Crystalloid volume administer (ml): 800 Total IV fluid infused: 800 Progress Note Anesthesia document: Postop Eval 1 completed: Yes
[2024-07-08] MEDS: Acetaminophen 325 MG Tablet 650 MG PO (12:03)
[2024-07-08] MEDS: oxyCODONE 5 MG Tablet PO (12:03)
--- NOTE | 2024-07-08 12:54 | POSTOPAN2_ITS ---
Anesthesia Postop Eval I Sum Postop Eval Completion status Anesthesia document: Postop Eval 1 completed: Yes Anesthesia Postop Eval I Summary Anesthesia Postop Eval I Summary: Anesthesia Postop Eval I: Assessment Summary Airway patent Yes 07/08/24 12:34 [email or web address] Spontaneous unlabored Yes 07/08/24 12:34 [email or web address] [email or web address] respirations Mental status Awake,Calm 07/08/24 12:34 [email or web address] [email or web address] nausea No 07/08/24 12:34 [email or web address] [email or web address] Vomiting No 07/08/24 12:34 [email or web address] [email or web address] Anesthesia Postop Eval I: Fluid Summary Crystalloid volume administer 800 07/08/24 12:34 [email or web address] [email or web address] (ml) Colloids volume administered ( ml) Blood Product volume administered (ml) Total IV fluid infused 800 07/08/24 12:34 [email or web address] Anesthesia Postop Eval I: Summary Notes Anesthesia Complication No 07/08/24 12:34 [email or web address] Anesthesia Complication Comment: Post-operative progress note Anesthesia: Postop Eval II Evaluation Mental status: Awake Pain Level: 0 nausea: No Vomiting: No
--- NOTE | 2024-07-08 12:54 | PCM.POSTANE2 ---
Anesthesia Postop Eval I Sum Postop Eval Completion status Anesthesia document: Postop Eval 1 completed: Yes Anesthesia Postop Eval I Summary Anesthesia Postop Eval I Summary: Anesthesia Postop Eval I: Assessment Summary Airway patent Yes 07/08/24 12:34 [email or web address] Spontaneous unlabored Yes 07/08/24 12:34 [email or web address] respirations Mental status Awake,Calm 07/08/24 12:34 [email or web address] nausea No 07/08/24 12:34 [email or web address] Vomiting No 07/08/24 12:34 [email or web address] Anesthesia Postop Eval I: Fluid Summary Crystalloid volume administer 800 07/08/24 12:34 [email or web address] (ml) Colloids volume administered ( ml) Blood Product volume administered (ml) Total IV fluid infused 800 07/08/24 12:34 [email or web address] Anesthesia Postop Eval I: Summary Notes Anesthesia Complication No 07/08/24 12:34 [email or web address] Anesthesia Complication Comment: Post-operative progress note Anesthesia: Postop Eval II Evaluation Mental status: Awake Pain Level: 0 nausea: No Vomiting: No
== END 2024-07-08 13:09 | disposition home or self-care (01) ==
LOC: SDC 06:59 → AC 07:03
PROVIDERS: Anesthesiology; PCP Family Medicine; Referring Provider Surgery; Visit Provider Surgery
PROC: 0HBV0ZZ Excision of Bilateral Breast, Open Approach (ICD-10-PCS; CPT 19302; principal; 2024-07-08 08:15)
DX: C50.411 Malignant neoplasm of upper-outer quadrant of right female breast (principal); J44.9 Chronic obstructive pulmonary disease, unspecified; Z17.0 Estrogen receptor positive status [ER+]; I10 Essential (primary) hypertension; Z87.891 Personal history of nicotine dependence; Z79.899 Other long term (current) drug therapy; E78.00 Pure hypercholesterolemia, unspecified
CPT/HCPCS: 19301; 38525; 19283; 00400; 19281; 36415; 38792; 76098; 84443; 85027; 88307; 88331; 88341; 88342; 93005; A4648; A9520; J2405; Q9968

== ENCOUNTER 2024-07-20 07:21 | Day surgery (SDC) | payer MEDICARE, SELFPAY ==
[2019-06-15 14:33] VITALS: BMI 32.3
[2024-07-20] VITALS (11 sets, daily range): BP systolic 107–134; BP diastolic 69–84; PULSE 74–90; RESP 16; TEMP 36.1–36.8; O2SAT 94–100; BMI 31.5
--- NOTE | 2024-07-20 08:19 | PRE.ANES_ITS ---
ASA Classification* ASA Classification ASA Classification: 2 Assessment & Plan Anesthesia* Anesthesia Assessment Anesthesia Assessment: Discussed sedation and/or anesthesia options, risks, benefits, and alternatives with patient/parents/legal guardian/POA. Questions invited. The patient/parents/legal guardian/POA seems to understand and agrees to proceed with anesthesia plan. Reviewed the physical assessment, medical history, allergy history and patient home medications list prior to surgery/procedure/anesthetic and documented any changes. Performed airway and anesthesia risk assessments. Anesthesia Type Anesthesia Type: General History Source History Obtained from:: Patient and Chart Anesthesia Focused Assessment* Temperature: 97.0 F Pulse Rate: 90 Blood Pressure: 134/80 Respiratory Rate: 16 Pulse Ox: 98 Oxygen Delivery Method: Room Air Airway Assessment Mouth opens: >3 cm Mallampati Score: IV Teeth Condition: Caps/Crowns (Patient has several crowns. They are all tight. Rest of the teeth are tight.) Neck Range of motion (ROM): Full ROM Focused Labs Anesthesia Preop lab: CBC WBC 4.0 K/mm3 (4.4-11.0) L 06/26/24 08:51 06/26/24 RBC 4.47 M/mm3 (4.2-5.4) 06/26/24 08:51 06/26/24 Hgb 13.0 g/dL (12.0-15.0) 06/26/24 08:51 06/26/24 Hct 38.4 % (37-47) 06/26/24 08:51 06/26/24 Plt Count 228 K/mm3 (150-450) 06/26/24 08:51 06/26/24 CHEMISTRY Potassium 3.2 mmol/L (3.5-5.1) L 07/21/19 15:40 07/21/19 Sodium 139 mmol/L (136-145) 07/21/19 15:40 07/21/19 BUN 19 mg/dL (7-18) H 07/21/19 15:40 07/21/19 Creatinine 0.97 mg/dL (0.55-1.02) 07/21/19 15:40 07/21/19 Glucose 91 mg/dL (74-106) 07/21/19 15:40 07/21/19 TSH 2.880 uIU/mL (0.300-4.200) 06/26/24 08:51 05/31 12/21 COAG Pre-Assessment Diagnosis/Proposed Procedure Planned Operative Procedure(s): RE EXCISION OF MARGINS RIGHT BREAST Anesthesia History Anesthesia History - payroll assistant: Anesthesia History - payroll assistant Hx Hospitalization No 07/16/24 13:42 Any Problems With Anesthesia No 07/16/24 13:42 Cholinesterase deficiency No 07/16/24 13:42 You/Your Family Experience No 07/16/24 13:42 fever (hyperthermia) with Relationship Recent Exposure to Contagious No 07/20/24 07:38 Disease Does patient have nerve No 07/16/24 13:42 stimulator Patient instructed to have device shut off --Does patient have Pacemaker No 07/20/24 07:39 or ICD? When Was Last Pacemaker Check QUESTION #4 FULL TEXT: You/Your Family Experience fever (hyperthermia) with Anesthesia Last Oral Intake Last Oral intake: Last Oral Intake NPO since 20:00 07/20/24 07:39 Meds taken in AM with sips of water? Meds patient instructed to take am of surgery PONV PONV - payroll assistant: PONV - payroll assistant Female Yes 07/16/24 13:42 HX of Motion Sickness No 07/16/24 13:42 HX of N/V After Surgery No 07/16/24 13:42 Non-Smoker Yes 07/16/24 13:42 Duration of Surgery greater No 07/16/24 13:42 than 60 minutes Number of Risk Factors 2 07/16/24 13:42 PONV Score Moderate Risk 07/16/24 13:42 Height & Weight Height & Weight: Anesthesia: Height & Weight Height 5 ft 6 in 07/20/24 07:39 Weight: 88.541 kg 07/20/24 07:39 Body Mass Index (BMI) 31.5 07/20/24 07:39 Respiratory Assessment Respiratory Assessment - payroll assistant: Respiratory Tract Infection Hx - payroll assistant Hx Respiratory Tract Infection No 07/16/24 13:42 STOP Sleep Apnea STOP Sleep Apnea - payroll assistant: STOP Sleep Apnea - payroll assistant Hx Hypertension Yes: CONTROLLED WITH MED 07/16/24 13:42 Hx Sleep Apnea No 07/16/24 13:42 CPAP BIPAP Do you snore loudly (louder No 07/16/24 13:42 than talking or can be heard Do you often feel tired/ No 07/16/24 13:42 fatigued/ sleepy during daytime? Has anyone observed you stop No 07/16/24 13:42 breathing during sleep? STOP Results Negative 07/16/24 13:42 QUESTION #5 FULL TEXT : Do you snore loudly (louder than talking or can be heard through closed doors)? 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 Specify any problems Hx of Preganancy in last 3 No 07/16/24 13:42 Months Nurse Filling Out Transfusion DSCHRIBER 07/16/24 13:42 & Questions: Date: 07/16/24 07/16/24 13:42 Time: 13:43 07/16/24 13:42 Patient unable to answer at this time (ie. confused, unrespo /Reproduction History /Reproductive History - payroll assistant: /Reproductive Hx- payroll assistant Hx Now Gestational Age (in weeks): EDC: Hx Hx Para Hx Section SAB No 07/16/24 13:42 Active Medications Active Medications: Current Medications Generic Name Dose Route Start Last Admin Trade Name Freq PRN Reason Stop Dose Admin Cefazolin Sodium 2 gm/ N/A 20 mls @ 400 mls/hr 07/20/24 09:00 IV 07/20/24 09:02 PREOP ONE PFSH Medical History Post-menopausal Cancer Depression Thyroid disease History of renal disease High cholesterol History of diverticulitis Former smoker COPD (chronic obstructive pulmonary disease) Shortness of breath on exertion History of edema History of stress test Abnormal mammogram of right breast Ductal carcinoma in situ (DCIS) of left breast Hypertension Home Medications ?Medication ?Instructions ?Recorded ?Last Taken ?Type bupropion HCl 300 mg 24 hr tablet, 300 mg PO QAM 05/0407/20/24 06:00 History extended release clobetasol 0.05 % topical cream 1 dose topical PRN PRN skin 05/04/19 Unknown History irritation alendronate 70 mg tablet 70 mg PO QWEEK 05/29/2406/28 History fluticasone 250 mcg-salmeterol 50 1 ea inhalation BID 05/29/24 07/20/24 06:00 History mcg/dose blistr powdr for inhalation levothyroxine 25 mcg tablet 50 mcg PO DAILY hypothyroi d 05/29/24 07/20/24 06:00 History losartan 50 mg tablet 50 mg PO QDAY 05/29/2407/20 06:00 History meloxicam 15 mg tablet 15 mg PO QDAY PRN pain 05/29 Unknown History pravastatin 40 mg tablet 40 mg PO QHS 05/29/24 History hydrochlorothiazide 25 mg tablet 25 mg PO QDAY 5 07/19/24 History oxycodone 5 mg tablet 5 - 10 mg (1 - 2 x 5 mg) PO Q4H 07/08/24 Unknown Rx PRN PRN Pain Score 4-10 5 days #20 tabs Allergy/AdvReac Type Severity Reaction Status Date / Time Sulfa (Sulfonamide AdvReac Nausea Verified 07/20/24 07:34 Antibiotics) Family History Mother Rheumatoid arthritis High cholesterol Sister Diabetes Father Emphysema lung Surgical History History of lumpectomy of right breast S/P laparoscopic cholecystectomy S/P breast biopsy, right Hx of colonoscopy Hx of dilation and curettage Hx of nasal septoplasty Hx of left breast biopsy History of lumpectomy of left breast History of left oophorectomy Hx of hemorrhoidectomy Hx of tonsillectomy Social History Smoking Status: Former smoker alcohol intake: current alcohol intake frequency: holidays/special occasions only substance use type: does not use caffeine: Yes what type of physical activity do you participate in: none frequency: does not exercise Review of Systems (Anesthesia) ROS Narrative System reviewed and no additional complaints, except as documented.
--- NOTE | 2024-07-20 09:00 | BRBX_PTH ---
PATIENT: LISSETH GREGORIO LOC: [facility] [place] U#:[id number] AGE/SX: 73/F ROOM: RE07/20/[address]: Dr. Darrel Chaudhry MD : 1950 BED: DIS: 07/20/2024 SPEC #: [id number] RECD: 07/20/24 13:24 STATUS: CHELSI REMuriel #: [id number] SOPHIA: 07/20/24 09:[address]: Darrel Chaudhry DEPT: SURGICAL PATHOLOGY RECD BY: Jose Moraes ENTERED: 07/20/24 13:25 SP TYPE: BREAST BX OTHR DR: Dr. Graciela Oconnor, DO Tissues: A - Right breast, NOS B - Right breast, NOS C - Right breast, NOS Procedures: Surgery Specimen Level IV HEADER OPERATION: Re-excision of margins for right breast PRE-OP DIAGNOSIS: Invasive ductal carcinoma right breast TISSUE SUBMITTED: A- New superior margins *suture lujan new margin*, B- New posterior margin * suture lujan new margin*, C- New medical margin *suture lujan new margin, single long tag* Ischemic Time: 1 minute Fixation Time: 9 hours MICROSCOPIC DIAGNOSIS A. RIGHT BREAST NEW SUPERIOR MARGIN, RIGHT BREAST REEXCISION MARGIN: -Breast tissue with focal usual ductal hyperplasia fibrocystic and other nonmalignant changes including fibrosis, fat necrosis granulation tissue fibrosis and cyst formation -Negative for malignant cells B. RIGHT BREAST NEW POSTERIOR MARGIN, RIGHT BREAST REEXCISION MARGIN: -Breast tissue with fat necrosis and fibrosis -Negative for malignant cells C. RIGHT BREAST NEW MEDIAL MARGIN, RIGHT BREAST REEXCISION MARGIN: -Breast tissue with fat necrosis, granulation tissue, fibrosis, and cysts -Negative for malignant cells Jennifer Quintana MD, 07/27/2024 MICROSCOPIC DESCRIPTION Slides are reviewed. GROSS DESCRIPTION Specimen A. Received in formalin labeled, Lisseth Gregorio, and designated new superior margin suture ljuan new margin, is a 3.5 x 2.5 x 1.2 cm ovoid portion of yellow, lobular, fibroadipose tissue. One smooth surface of the specimen is marked by surgical suture that is designated as new margin and is inked black. The opposing surface of the specimen contains red-yuan fibrous tissue consistent with the previous biopsy surface. Sectioning shows minimal yellow chalky apparent fat necrosis adjacent to the previous biopsy surface however no suspicious masses or nodules are seen. Totally submitted as follows:Cassette Summary:A1-one perpendicular end of the qojymwhlD5-Z1-nttkpni sectionsA5-opposing perpendicular end of the specimen Specimen B. Received in formalin labeled, Lisseth Gregorio and designated new posterior margin suture lujan new margin, is a 5.1 x 3.5 x 2.2 cm irregularly-shaped portion of yellow-yuan lobular fibroadipose tissue. One smooth surface of the specimen is marked by surgical suture that is designated as new margin and is inked black. The opposing surface of the specimen contains red-brown fibrous tissue consistent with previous biopsy surface. Sectioning shows minimal yellow chalky apparent fat necrosis adjacent to the previous biopsy surface however no suspicious masses or nodules are seen. Plant Guide sections are submitted as follows:Cassette Summary:B1-2-one perpendicular end of the jintjwbaF6-V3-chhwndwciwr central sectionsB7-opposing perpendicular end of the specimen Specimen C. Received in formalin labeled, Lisseth Gregorio, and designated new medial margin suture lujan new margin, is a 4.2 x 3.6 x 2.0 cm irregularly-shaped portion of yellow-yuan lobular fibroadipose tissue. One smooth surface of the specimen contains a surgical suture that is designated as new margin and is inked black. The opposing surface of the specimen contains red-brown fibrous tissue consistent with the previous biopsy surface. Sectioning shows minimal yellow chalky apparent fat necrosis adjacent to the previous biopsy surface however no suspicious masses or nodules are seen. Plant Guide sections are submitted as follows: Cassette summary: C1-one perpendicular end of the cslmorahH5-Q3-pfwftwh sectionsC7-opposing perpendicular end of the specimen JK 07/20/2024 CPT:63960b9, TC:5
--- NOTE | 2024-07-20 09:09 | PCM.HP.STD ---
HPI - General HPI Narrative ERNESTO VALDEZ, is a 73 F who presents with positive margins from her partial mastectomy. Patient had partial mastectomy about a week ago though the pathology results revealed a positive superior margin with DCIS closely abutting the margins as well. [facility] Medical History Post-menopausal Cancer Depression Thyroid disease History of renal disease High cholesterol History of diverticulitis Former smoker COPD (chronic obstructive pulmonary disease) Shortness of breath on exertion History of edema History of stress test Abnormal mammogram of right breast Ductal carcinoma in situ (DCIS) of left breast Hypertension Home Medications ?Medication ?Instructions ?Recorded ?Last Taken ?Type bupropion HCl 300 mg 24 hr tablet, 300 mg PO QAM 05/04/19 07/20/24 06:00 History extended release clobetasol 0.05 % topical cream 1 dose topical PRN PRN skin 05/04/19 Unknown History irritation alendronate 70 mg tablet 70 mg PO QWEEK 05/29/24 07/19/24 History fluticasone 250 mcg-salmeterol 50 1 ea inhalation BID 05/29/24 07/20/24 06:00 History mcg/dose blistr powdr for inhalation levothyroxine 25 mcg tablet 50 mcg PO DAILY hypothyroid 05/29/24 07/20/24 06:00 History losartan 50 mg tablet 50 mg PO QDAY 05/29/24 07/20/24 06:00 History meloxicam 15 mg tablet 15 mg PO QDAY PRN pain 05/29/24 Unknown History pravastatin 40 mg tablet 40 mg PO QHS 05/29/24 07/19/24 History hydrochlorothiazide 25 mg tablet 25 mg PO QDAY 07/08/24 07/19/24 History oxycodone 5 mg tablet 5 - 10 mg (1 - 2 x 5 mg) PO Q4H 07/08/24 Unknown Rx PRN PRN Pain Score 4-10 5 days #20 tabs Allergy/AdvReac Type Severity Reaction Status Date / Time Sulfa (Sulfonamide AdvReac Nausea Verified 07/20/24 07:34 Antibiotics) Family History Mother Rheumatoid arthritis High cholesterol Sister Diabetes Father Emphysema lung Surgical History History of lumpectomy of right breast S/P laparoscopic cholecystectomy S/P breast biopsy, right Hx of colonoscopy Hx of dilation and curettage Hx of nasal septoplasty Hx of left breast biopsy History of lumpectomy of left breast History of left oophorectomy Hx of hemorrhoidectomy Hx of tonsillectomy Social History Smoking Status: Former smoker alcohol intake: current alcohol intake frequency: holidays/special occasions only substance use type: does not use caffeine: Yes what type of physical activity do you participate in: none frequency: does not exercise Vital Signs Vital Signs Vital Signs: 07/20/24 07:38 07/20/24 07:39 07/20/24 08:29 Temperature 97.0 F L 97.0 F L Temperature Source Temporal Pulse Rate 90 90 Respiratory Rate 16 16 Respiratory Pattern Normal Blood Pressure 134/80 H 134/80 H Blood Pressure Mean 98 Blood Pressure Source Monitor Blood Pressure Position Supine Blood Pressure Location Right Arm Pulse Ox 98 98 Oxygen Delivery Method Room Air Room Air Weight Weight: 195 lb 3.2 oz Body Mass Index (BMI) 31.5 Physical Exam Const alert and oriented x3 HEENT normocephalic Eyes PERRL Resp normal respiratory effort and normal air movement Cardio regular rate and regular rhythm GI soft to palpation, non-tender and non-distended Extremity normal to inspection Assessment & Plan Assessment/Plan (1) Invasive ductal carcinoma of right breast: PLAN: The patient had partial mastectomy for her right breast cancer which came back as positive margins on the superior surface. There is also close DCIS in the posterior lateral surface. I will take the patient back to surgery and reexcised all of her margins. I discussed the risks of bleeding and infection and nonhealing of the wound. Darrel Chaudhry MD Pager: [facility] [address] [place] [address], [address] [place] [address] Office:
[2024-07-20] MEDS: Cefazolin 2 GM in Syringe IV (09:36)
[2024-07-20] MEDS: Bupivacaine 0.25% 30 ML Vial (09:42)
--- NOTE | 2024-07-20 09:58 | OP.PCM_ITS ---
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 New superior margin 2. New medial margin 3. New posterior margin Description of surgery: Patient was taken back to surgery and general anesthesia was induced. The right breast was prepped and draped in usual sterile fashion. The prior incision was injected with local anesthetic and reincised. The seroma was suctioned dry. The superior margin was taken using electrocautery dissection and then the new margin was marked with a suture. In the same fashion a new medial and a new posterior margin were both taken and they were marked. The cavity appeared to be clean dry and intact and it was irrigated and suctioned dry. The incision was closed with interrupted 3-0 Vicryl sutures and a running 4-0 Monocryl suture. Dermabond was applied. Surgical Findings: New margins Complications Complications: No Admit VTE Documentation VTE Mechan Device Prophylaxis: SCD's
--- NOTE | 2024-07-20 10:01 | DCINST_ITS ---
Discharge Instructions Procedure Breast Surgery Diet Discharge Diet: No restrictions Activity Discharge Activity: May Not Drive (for 2-3 days or while taking narcotic pain medications.) May shower in (days): 1 Lifting Restrictions: 15 lbs for 1 week Additional Activity Instructions:: Alternate ibuprofen and Tylenol for pain control, oxycodone for breakthrough pain Dressing / Incision Call your doctor if your incision/area has: Continuous Slow Oozing, Sudden Increased Bleeding, Increased Pain/ Swelling, Increased Redness, Foul Smelling Discharge and Swelling at the incision site Call your doctor if you observe: Fever of 101 or Higher Suture Line Care: Avoid Pulling/Pushing and Avoid Pinching/Bending Cleanse incision/area with: Soap & Water Additional Dressing/Incision Instructions:: Remove bulky dressing tomorrow. Use supportive bra for support. Follow Up Care Please Follow Up With: Darrel Chaudhry MD When: Please call to schedule 2 week follow up appointment. [phone] Test Results: Test results from this visit will be discussed in further detail at your follow- up appointment, if applicable. Discharge Plan Admission Attending Provider: Darrel Chaudhry Primary Care Provider: Graciela Oconnor Instructions Print Language: Hungarian Discharge Orders/Prescriptions Prescriptions: New oxycodone 5 mg Tablet 5 - 10 mg PO Q4H PRN PRN (Reason: Pain Score 4-10) 5 Days Qty: 10 0RF No Action bupropion HCl 300 mg tablet extended release 24 hr 300 mg PO QAM clobetasol 0.05 % cream 1 dose TOPICAL PRN PRN (Reason: skin irritation) alendronate 70 mg tablet 70 mg PO QWEEK fluticasone propion-salmeterol 250-50 mcg/dose blister with device 1 ea inhalation BID pravastatin 40 mg tablet 40 mg PO QHS losartan 50 mg tablet 50 mg PO QDAY meloxicam 15 mg tablet 15 mg PO QDAY PRN (Reason: pain) levothyroxine 25 mcg tablet 50 mcg PO DAILY hydrochlorothiazide 25 mg tablet 25 mg PO QDAY oxycodone 5 mg Tablet 5 - 10 mg PO Q4H PRN PRN (Reason: Pain Score 4-10) 5 Days Qty: 20 0RF Referrals / Follow Up: Graciela Oconnor DO [Primary Care Provider] - Disposition Disposition (needs filled in before D/C Order can be placed): Home, Self Care
--- NOTE | 2024-07-20 10:15 | PCM.POST.ANE ---
Anesthesia: Postop Eval I Current Vital Signs Temperature: 98.2 F Pulse Rate: 80 Blood Pressure: 122/69 Respiratory Rate: 16 Pulse Ox: 98 Oxygen Delivery Method: Room Air Assessment Airway patent: Yes Spontaneous unlabored respirations: Yes Mental status: Awake nausea: No Vomiting: No Anesthesia Complication: No Fluid Hydration Crystalloid volume administer (ml): 500 Total IV fluid infused: 500 Progress Note Anesthesia document: Postop Eval 1 completed: Yes
[2024-07-20] MEDS: Acetaminophen 325 MG Tablet 650 MG PO (11:27)
[2024-07-20] MEDS: oxyCODONE 5 MG Tablet PO (11:27)
--- NOTE | 2024-07-20 13:50 | POSTOPAN2_ITS ---
Anesthesia Postop Eval I Sum Postop Eval Completion status Anesthesia document: Postop Eval 1 completed: Yes Anesthesia Postop Eval I Summary Anesthesia Postop Eval I Summary: Anesthesia Postop Eval I: Assessment Summary Airway patent Yes 07/20/24 10:16 COMMODITY [email or web address] Spontaneous unlabored Yes 07/20/24 10:16 COMMODITY [email or web address] respirations Mental status Awake 07/20/24 10:16 [email or web address] [email or web address] nausea No 07/20/24 10:16 COMMODITY [email or web address] Vomiting No 07/20/24 10:16 COMMODITY [email or web address] Anesthesia Postop Eval I: Fluid Summary Crystalloid volume administer 500 07/20/24 10:16 COMMODITY [email or web address] (ml) Colloids volume administered ( ml) Blood Product volume administered (ml) Total IV fluid infused 500 07/20/24 10:16 COMMODITY [email or web address] Anesthesia Postop Eval I: Summary Notes Anesthesia Complication No 07/20/24 10:16 COMMODITY [email or web address] Anesthesia Complication Comment: Post-operative progress note Anesthesia: Postop Eval II Evaluation Mental status: Awake Pain Level: 3 nausea: No Vomiting: No
--- NOTE | 2024-07-20 13:50 | PCM.POSTANE2 ---
Anesthesia Postop Eval I Sum Postop Eval Completion status Anesthesia document: Postop Eval 1 completed: Yes Anesthesia Postop Eval I Summary Anesthesia Postop Eval I Summary: Anesthesia Postop Eval I: Assessment Summary Airway patent Yes 07/20/24 10:16 ANIMAL SHELTER [email or web address] Spontaneous unlabored Yes 07/20/24 10:16 ANIMAL SHELTER [email or web address] respirations Mental status Awake 07/20/24 10:16 ANIMAL SHELTER [email or web address] nausea No 07/20/24 10:16 ANIMAL SHELTER [email or web address] Vomiting No 07/20/24 10:16 ANIMAL SHELTER [email or web address] Anesthesia Postop Eval I: Fluid Summary Crystalloid volume administer 500 07/20/24 10:16 ANIMAL SHELTER [email or web address] (ml) Colloids volume administered ( ml) Blood Product volume administered (ml) Total IV fluid infused 500 07/20/24 10:16 ANIMAL SHELTER [email or web address] Anesthesia Postop Eval I: Summary Notes Anesthesia Complication No 07/20/24 10:16 ANIMAL SHELTER [email or web address] Anesthesia Complication Comment: Post-operative progress note Anesthesia: Postop Eval II Evaluation Mental status: Awake Pain Level: 3 nausea: No Vomiting: No
== END 2024-07-20 12:03 | disposition home or self-care (01) ==
LOC: SDC 07:22 → AC 07:24
PROVIDERS: PCP Family Medicine; Referring Provider Surgery; Visit Provider Surgery
PROC: (CPT 19301; principal; 2024-07-20 08:45)
DX: D05.11 Intraductal carcinoma in situ of right breast (principal); J44.9 Chronic obstructive pulmonary disease, unspecified; E78.00 Pure hypercholesterolemia, unspecified; I10 Essential (primary) hypertension; Z87.891 Personal history of nicotine dependence; Z79.51 Long term (current) use of inhaled steroids; Z79.890 Hormone replacement therapy; Z79.899 Other long term (current) drug therapy; N60.91 Unspecified benign mammary dysplasia of right breast; L90.5 Scar conditions and fibrosis of skin; N64.1 Fat necrosis of breast
CPT/HCPCS: 11406; 00300; 88305; A4648; A4216; J2405

== ENCOUNTER → 2024-09-09 | Outpatient (CLI) | payer MEDICARE, SELFPAY ==
[2019-06-15 14:33] VITALS: BMI 32.3
--- NOTE | 2024-09-09 17:25 | CT_ITS ---
PROCEDURE: CT CHEST, ABD, PEL W/CONTRAST 09/09/2024 REASON FOR EXAM: BREAST CA-IV ONLY TECHNIQUE: Chest, abdomen and pelvis CT with intravenous contrast. Coronal and Sagittal reconstruction series were provided. One or more dose reduction techniques were used (e.g., Automated exposure control, adjustment of the mA and/or kV according to patient size, use of iterative reconstruction technique. PATIENT PREPARATION: Per protocol ORAL CONTRAST TYPE: None. CONTRAST: Isovue-300 VOLUME: 100mL RADIATION DOSE SUMMARY: CTDlvol: 15.5 mGy DLP: 1560.53 mGycm COMPARISON: Prior study dated January 06, 2019. FINDINGS: CT CHEST: Hardware: Surgical clips are seen in the right axilla. There is a 2.1 cm nodular density in the inferior aspect of the right breast laterally with a biopsy clip within it. Lymph nodes: Small benign-appearing bilateral axillary lymph nodes. Heart and Vasculature: Heart is not enlarged. No coronary artery calcification is seen. Lungs and Airways: There is a 1.7 cm x 1.6 cm rather ill-defined area of ground- glass appearance in the posterior aspect of the superior segment of the right lower lobe. This is not a solid nodule. Pleura: Unremarkable Bones: Degenerative changes of the thoracic spine. CT ABDOMEN/PELVIS: Moderate-sized hiatal hernia. Liver: Stable 1.8 cm x 1.8 cm hypodense nodule in the left lobe of the liver with peripheral enhancement suggestive of hemangioma. A similar-appearing nodule is also seen in the posterior superior aspect of the right lobe of the liver measuring 2 cm. Tiny cystic changes are also seen in the right lobe of the liver. Gallbladder: Surgically absent. Spleen: Normal size. Pancreas: Normal size without evidence of mass surrounding inflammation or ductal dilation. Adrenals: Unremarkable Kidneys: Small bilateral parapelvic renal cysts. Bladder: Unremarkable Reproductive Organs: Calcified fibroid uterus. Bowel: Colonic diverticulosis without diverticulitis. Appendix: Unremarkable Lymph nodes: Unremarkable. Vasculature: Mild diffuse atherosclerotic calcifications are noted. Peritoneum / Retroperitoneum: Unremarkable. Evidence of prior ventral hernia repair with a mesh. Bones: Degenerative changes of the spine. CT/CT Chest, Abd, Pel w/Contrast IMPRESSION: 2.1 cm area of ground-glass appearance in the posterior aspect of the superior segment of the right lower lobe. This is not a solid nodule. Follow-up recommended. Stable hypodense lesions in the liver as described most likely representing hem angiomas. Sigmoid diverticulosis. Reading Location: [facility]
== END | disposition home or self-care (01) ==
LOC: CT 17:24
PROVIDERS: PCP Family Medicine; Referring Provider Internal Medicine Medical Oncology; Visit Provider Internal Medicine Medical Oncology
DX: C50.911 Malignant neoplasm of unspecified site of right female breast (principal)
CPT/HCPCS: 71260; 74177; Q9967; A4216

== ENCOUNTER → 2024-09-17 | Outpatient (CLI) | payer MEDICARE, SELFPAY ==
[2019-06-15 14:33] VITALS: BMI 32.3
--- NOTE | 2024-09-17 08:26 | NM_ITS ---
PROCEDURE: BONE SCAN WHOLE BODY 09/17/2024 REASON FOR EXAM: Right BREAST CA TECHNIQUE: Whole-body images after radiopharmaceutical administration RADIOPHARMACEUTICAL: 27.2 mCi Technetium-99m MDP IV COMPARISON: None FINDINGS: There is moderate increased radiotracer activity in the left posterior elements at approximately C2. There is mild increased radiotracer activity in the right posterior elements at approximately T1. There is moderate increased radiotracer activity in the vertebral body and left posterior elements at approximately T10. There is moderate increased radiotracer activity at the right and left knee, likely degenerative. NM/Bone Scan Whole Body IMPRESSION: There is moderate increased radiotracer activity in the left posterior elements at approximately C2. There is mild increased radiotracer activity in the right posterior elements at approximately T1. There is moderate increased radiotracer activity in the vertebral body and left posterior elements at approximately T10. MRI correlati on with and without contrast is recommended for further characterization. There is moderate increased radiotracer activity at the right and left knee, li odilon degenerative. Reading Location: [facility]
== END | disposition home or self-care (01) ==
LOC: NM 08:23
PROVIDERS: PCP Family Medicine; Referring Provider Internal Medicine Medical Oncology; Visit Provider Internal Medicine Medical Oncology
DX: C50.911 Malignant neoplasm of unspecified site of right female breast (principal)
CPT/HCPCS: 78306; A9503

== ENCOUNTER → 2025-01-08 | Outpatient (CLI) | payer MEDICARE, SELFPAY ==
[2019-06-15 14:33] VITALS: BMI 32.3
--- NOTE | 2025-01-08 15:35 | MRI_ITS ---
PROCEDURE: SPINE THORACIC W/WO CONTRAST 01/08/2025 REASON FOR EXAM: ABNORMAL BONE SCAN TECHNIQUE: Thoracic spine MRI without and with intravenous gadolinium-based contrast. Multiplanar and multisequence images were obtained. CONTRAST: Clariscan VOLUME: 18mL 20 gauge IV COMPARISON: Correlation with bone scan 09/17/2024. FINDINGS: Vertebrae: A hyperintense focus on T1, T2 at T11 vertebral body which is deleted on STIR and nonenhancing on postcontrast images, most likely favors hemangioma. Alignment: Normal. Spinal Cord: Unremarkable. Disc spaces: Degenerate changes predominantly at T9-T10. Paraspinal Tissues: No soft tissue abnormalities. Postcontrast images: Unremarkable. MRI/Spine Thoracic W/WO Contrast IMPRESSION: A hyperintense focus on T1, T2 at T11 vertebral body which is deleted on STIR a nd nonenhancing on postcontrast images, most likely favors hemangioma.. Giving the history of breast cancer and suspected u ptake on bone scan, I could not entirely exclude metastasis and I recommend follow-up imaging. However, the hyperactivity on kendall ne scan felt to be reflective of degenerative changes at T9-T10. Otherwise, unremarkable MRI of the thoracic spine without additional evidence o f metastatic lesions. Reading Location: [id number]
--- NOTE | 2025-01-08 15:35 | MRI_ITS ---
PROCEDURE: SPINE CERVICAL W/WO CONTRAST 01/08/2025 REASON FOR EXAM: ABNORMAL BONE SCAN TECHNIQUE: Procedure Code: [id number] Modality: MR Procedure: SPINE CERVICAL W/WO CONTRAST Multiplanar and multisequence images were obtained with intravenous gadolinium- based contrast administration. CONTRAST: Clariscan VOLUME: 80 mL COMPARISON: None. FINDINGS: Vertebrae: Unremarkable without suspicious lesions or compression fractures. Alignment: Unremarkable. Spinal Cord: Unremarkable. C2-3: Facet joints which fusion. No significant foraminal or canal stenosis. C3-4: Disc space narrowing. Facet joint arthropathy. Severe left foramina stenosis. Mild canal stenosis. C4-5: Disc space narrowing. Uncovertebral hypertrophy. Facet joint arthropathy. Bilateral foramina stenosis. Mild canal stenosis. C5-6:Disc space narrowing. Uncovertebral hypertrophy. Facet joint arthropathy. Severe bilateral foramina stenosis. Moderate canal stenosis. C6-7: Disc space narrowing. Uncovertebral hypertrophy. Mild bilateral foramina stenosis. No significant canal stenosis. C7-T1: No significant foraminal or canal stenosis. Postcontrast images: Unremarkable. MRI/Spine Cervical W/WO Contrast IMPRESSION: No evidence of metastatic lesions. Multilevel degenerate changes, predominantly for severe bilateral foramina sten osis and moderate canal stenosis at C5-C6. Reading Location: [facility]
== END | disposition home or self-care (01) ==
LOC: MRI 15:27
PROVIDERS: PCP Family Medicine; Referring Provider Internal Medicine Medical Oncology; Visit Provider Internal Medicine Medical Oncology
DX: R94.8 Abnormal results of function studies of other organs and systems (principal)
CPT/HCPCS: 72156; 72157; A9575; A4216